=== PATIENT | female | born 1940 | race Caucasian/White ===

== ENCOUNTER 2019-12-06 09:28 | Inpatient (IN) | payer MEDICARE, OTHER ==
[~2019-12-06] VITALS: Ht 154.9 cm; Wt 62.2 kg
[2019-12-06 09:55] VITALS: BP 131/69
[2019-12-06] MEDS ORDERED: Pantoprazole 80 MG in NS 250 ML IV ONE (10:00)
--- NOTE | 2019-12-06 10:20 | NUR ---
ED Nurse Note: Pt BIBA for L-sided weakness and 3 recent falls. Pt also states she had had black stools today. She denies pain, nausea, vomtiing. Pt is alert and orientedx4, ambulatory. Pt has been seen by CHELY.
[2019-12-06 10:41] LABS: BASOPHILS % (AUTO) 0.9 % (0.0-2.0); EOSINOPHILS % (AUTO) 0.1 % (0.0-3.0); HEMATOCRIT 35.7 % (37.0-47.0); HEMOGLOBIN 12.7 G/DL (12.0-16.0); LYMPHOCYTES % (AUTO) 14.9 % (20.0-45.0); MEAN CORPUSCULAR VOLUME 91 FL (80-99); MONOCYTES % (AUTO) 6.9 % (1.0-10.0); NEUTROPHILS % (AUTO) 77.2 % (45.0-75.0); PLATELET COUNT 301 K/UL (150-450); RED BLOOD COUNT 3.93 M/UL (4.20-5.40); RED CELL DISTRIBUTION WIDTH 11.1 % (11.6-14.8); WHITE BLOOD COUNT 7.9 K/UL (4.8-10.8)
[2019-12-06 10:49] LABS: ANION GAP 8 mmol/L (5-15); BLOOD UREA NITROGEN 24 mg/dL (7-18); CALCIUM 9.3 MG/DL (8.5-10.1); CARBON DIOXIDE 28 MMOL/L (21-32); CHLORIDE 103 MMOL/L (98-107); CREATININE 1.2 MG/DL (0.55-1.30); POTASSIUM 3.6 MMOL/L (3.5-5.1); SODIUM 139 MMOL/L (136-145)
[2019-12-06 11:00] LABS: ALANINE AMINOTRANSFERASE 22 U/L (12-78); ALBUMIN 3.4 G/DL (3.4-5.0); ALBUMIN/GLOBULIN RATIO 1.1 (1.0-2.7); ALKALINE PHOSPHATASE 91 U/L (46-116); ASPARTATE AMINO TRANSFERASE 23 U/L (15-37); BILIRUBIN,TOTAL 0.3 MG/DL (0.2-1.0); CREATINE KINASE 166 U/L (26-308)
[2019-12-06] MEDS ORDERED: ATORVASTATIN CA20 MG ORAL (11:04)
[2019-12-06] MEDS ORDERED: FERROUS SULFAT325 MG ORAL (11:04)
[2019-12-06] MEDS ORDERED: CEPHALEXIN500 MG ORAL (11:04)
[2019-12-06] MEDS ORDERED: vitamin D PO (11:04)
[2019-12-06 11:05] VITALS: BP 128/72
[2019-12-06] MEDS ORDERED: cefTRIAXone 1 GM in NS 55 ML IVPB ONE (11:15)
[2019-12-06 11:17] LABS: APPEARANCE,URINE CLEAR; BILIRUBIN, URINE NEGATIVE (NEGATIVE); GLUCOSE, URINE (UA) NEGATIVE (NEGATIVE); KETONES,URINE NEGATIVE (NEGATIVE); LEUKOCYTE ESTERASE ,URINE NEGATIVE (NEGATIVE); NITRITE,URINE NEGATIVE (NEGATIVE); PH,URINE 5 (4.5-8.0); PROTEIN,URINE 1+ (NEGATIVE); UROBILINOGEN,URINE NORMAL MG/DL (0.0-1.0)
[2019-12-06 11:18] LABS: COLOR,URINE YELLOW
--- NOTE | 2019-12-06 11:29 | Diagnostic Imaging Report ---
Indication: Pain, trauma, status post fall Technique: Spiral acquisitions obtained through the cervical spine. No IV contrast utilized. Multiplanar reconstructions were generated. Total dose length product 465 mGycm. CTDIvol(s) 20 mGy. Dose reduction achieved using automated exposure control. Comparison: none Findings: The bony alignment is normal. No prevertebral soft tissue swelling. Vertebral body heights are preserved. The disc spaces are preserved. No acute fractures. No dislocations. There is degenerative narrowing of the anterior atlantoaxial joint. There is mild facet arthrosis on the right at C3-4. There is minimal bilateral neural foraminal narrowing. No significant disc bulge or protrusion or spinal stenosis. There is mild left and moderate right facet arthrosis at C4-5. There is moderate to severe right neural foraminal stenosis, minimal left neural foraminal stenosis. No significant disc bulge or protrusion or spinal stenosis. At C5-6, bilateral facet arthrosis results in mild bilateral neural foraminal stenosis. No significant disc bulge or protrusion or spinal stenosis. At C6-7, there is bilateral facet arthrosis. No significant disc bulge or protrusion, spinal stenosis, or neural foraminal stenosis. At C7-T1, there is bilateral facet arthrosis. No significant neural foraminal stenosis, disc bulge or protrusion, spinal stenosis. The included extra spinal soft tissues are unremarkable. Impression: No acute bony trauma Degenerative changes as described on a level by level basis above The CT scanner at [facility] is accredited by the [employer] and the scans are performed using protocols designed to limit radiation exposure to as low as reasonably achievable to attain images of sufficient resolution adequate for diagnostic evaluation.
--- NOTE | 2019-12-06 11:43 | Diagnostic Imaging Report ---
Indications: Pain, trauma, status post fall Technique: Spiral acquisitions obtained through the brain. Angled axial and coronal 5 x 5 mm slices were reconstructed. Total dose length product 1072 mGycm. CTDI vol(s) 53 mGy. Dose reduction achieved using automated exposure control Comparison: None. Findings: No acute intracranial hemorrhage is demonstrated. There is some low-attenuation in the high posterior parasagittal right frontal lobe consistent with edema. This appears to be mostly within the white matter but there does appear to be some cortical extension as well. There is some edema of the anterior inferior right parietal cortex and overall greater abundance of brain tissue in the right convexity region. There is suggestion of some white matter edema in the inferior right maddox radiata.. All of this results in midline shift, with leftward shift of the midline of about 6 mm. There is also effacement of the sulci on the right. The mont[place]-white differentiation elsewhere is preserved. There is calvarial hyperostosis. No acute fractures. The mastoids are clear. The visualized sinuses are clear. Impression: Evidence of multifocal areas of very subtle edema in the right convexity, as described. This results in mass effect with 6 5 mm of leftward midline shift and effacement of the ipsilateral sulci. Edema may be due to tumor, inflammation, or acute/subacute infarction. Given the absence of hemorrhage, this is less likely related to the recent trauma. Recommend contrast MRI for better characterization. No evidence of acute intracranial hemorrhage Critical value findings phoned to Dr. Hall in the emergency room at the time of interpretation The CT scanner at [facility] is accredited by the [employer] and the scans are performed using protocols designed to limit radiation exposure to as low as reasonably achievable to attain images of sufficient resolution adequate for diagnostic evaluation.
[2019-12-06] MEDS ORDERED: Gadavist 7.5mMol/7.5ml vial IV PRN (11:45)
--- NOTE | 2019-12-06 12:24 | Emergency Room Report ---
History of Present Illness General Chief Complaint: Generalized Weakness Source: Patient Present Illness HPI 79-year-old female here with generalized weakness, acute left-sided weakness, low energy, multiple falls. Patient says that she intermittently feels lightheaded but feels much weaker on the left side over the past several weeks. She went to a another hospital several days ago and was diagnosed with a urinary tract infection and was given Keflex which she has been taking but says that she still feels these same symptoms and has been worsening. She fell multiple times earlier today. Denies head trauma. No blood thinners. Says that she feels generally weak in her left upper and left lower extremity but is still able to use his extremities. No other focal neurologic deficits. No headaches, vision changes, fevers, chills, chest pain, palpitations, shortness of breath, back pain, abdominal pain, nausea, vomiting, diarrhea, dysuria. Allergies: Coded Allergies: No Known Allergies (Unverified , 12/06/19) COVID-19 Screening Contact w/high risk pt: No Experienced COVID-19 symptoms?: No COVID-19 Testing performed ELECTRONIC WARFARE LINGUIST: No Nursing Documentation-[facility] Past Medical History: No History, Except For Review of Systems All Other Systems: negative except mentioned in HPI Physical Exam Vital Signs Date Time Temp Pulse Resp B/P (MAP) Pulse Ox O2 Delivery O2 Flow Rate FiO2 12/06/19 09:38 98.6 84 18 134/66 (88) 96 Room Air 12/06/19 09:55 98 Sp02 EP Interpretation: reviewed, normal General Appearance: no apparent distress, alert, GCS 15, non-toxic Head: normocephalic, atraumatic Eyes: bilateral eye normal inspection, bilateral eye PERRL ENT: hearing grossly normal, normal pharynx, no angioedema, normal voice Neck: full range of motion, supple/symm/no masses Respiratory: chest non-tender, lungs clear, normal breath sounds, speaking full sentences Cardiovascular #1: regular rate, rhythm, no edema Cardiovascular #2: 2+ carotid (R), 2+ carotid (L), 2+ radial (R), 2+ radial (L), 2+ dorsalis pedis (R), 2+ dorsalis pedis (L) Gastrointestinal: normal bowel sounds, non tender, soft, non-distended, no guarding, no rebound Rectal: deferred Genitourinary: normal inspection, no CVA tenderness Musculoskeletal: back normal, normal range of motion, calf tenderness, gait/station normal, non-tender Neurologic: alert, motor strength/tone normal, oriented x3, sensory intact, responsive, speech normal Psychiatric: judgement/insight normal, memory normal, mood/affect normal, no suicidal/homicidal ideation Reflexes: 3+ bicep (R), 3+ bicep (L), 3+ tricep (R), 3+ tricep (L), 3+ knee (R), 3+ knee (L) Lymphatic: no adenopathy Medical Decision Making Diagnostic Impression: Primary Impression: Brain edema Additional Impressions: Unilateral weakness Syncope Fall Melena ER Course CT head; Impression: Evidence of multifocal areas of very subtle edema in the right convexity, as described. This results in mass effect with 6 5 mm of leftward midline shift and effacement of the ipsilateral sulci. Edema may be due to tumor, inflammation, or acute/subacute infarction. Given the absence of hemorrhage, this is less likely related to the recent trauma. Recommend contrast MRI for better characterization. CT c-spine: negative EKG: NSR, no ischemia, intervals WNL. No ectopy Rhythm strip: patient monitored for arrhythmias - no malignant dysrhythmias, runs of PVCs, nor pauses noted 79-year-old female here with several weeks of left-sided weakness and multiple falls over the past several days to weeks. Patient was hemodynamically stable and neurovascular intact in the emergency department. She did not have any noted unilateral weakness on examination but she was complaining of subjective weakness of her left upper and left lower extremity. CT head showed unilateral right-sided swelling with approximately 5 mm midline shift. Patient was given 10 mg of Decadron IV. I spoke with the radiologist regarding these findings and he recommended MRI brain with contrast. That was performed in the emergency department and results are currently pending at this time. Patient has remained neurovascular intact without any cranial nerve deficits throughout her stay in the emergency department. CBC and CMP were unremarkable. EKG normal. Troponin negative. Patient was admitted to telemetry. Total critical care time: Approximately 25 minutes Due to a high probability of clinically significant, life threatening deterioration, the patient required the highest level of preparedness to intervene emergently and I personally spent this critical care time directly and personally managing the patient. This critical care time included obtaining a history, examining the patient, pulse oximetry, ordering and reviewing studies, ordering treatments, evaluating response to treatment and updating management plan as needed, frequent reassessment and discussion with other providers as well as arranging for ultimate disposition. This critical to care time was performed to assess and manage the high probability of life-threatening deterioration that could result in multiorgan failure. This critical care time is separate from the separately billable procedures and treating other patients. Last Vital Signs Date Time Temp Pulse Resp B/P (MAP) Pulse Ox O2 Delivery O2 Flow Rate FiO2 12/06/19 09:55 98.6 82 17 131/69 98 Room Air 12/06/19 09:55 98 Referrals: Heriberto Ashraf MD (PCP) Raymundo Hall M.D. Dec 06, 2019 12:24
[2019-12-06 13:10] VITALS: BP 134/66
[2019-12-06] MEDS ORDERED: dexAMETHasone 10mg/ml Inj IV ONE (13:15)
--- NOTE | 2019-12-06 14:15 | NUR ---
ED Nurse Note: Report given to Abby RN.
--- NOTE | 2019-12-06 14:30 | NUR ---
ED Nurse Note: Pt transferred to floor with all belongings. No acute distress. Pt is alert and ox4.
--- NOTE | 2019-12-06 15:33 | Diagnostic Imaging Report ---
Indication: Reason For Exam: AMS Technique: sagittal T1 fast spin echo, axial T1 and T2 FLAIR PROPELLER, axial T2 FS PROPELLER, T2* GRE, axial diffusion weighted images, post contrast axial and coronal T1 FLAIR PROPELLER images. ADC and exponential ADC maps generated Comparison: CT brain performed 2 hours earlier Findings: In the high right parietal lobe, near the vertex, there is an intra-axial mass with peripheral enhancement and central nonenhancement 16 by. The mass measures 16 mm craniocaudad by 15 mm transverse by 19 mm this does not show any diffusion restriction.. There is surrounding edema. There is edema occupying much of the right anterior inferior parietal lobe. Towards the vertex, edema is primarily confined to the white matter. However, in the inferior periphery of the parietal lobe there is even more intense edema in involving the cortex. This also extends into the superomedial temporal lobe. Edema is seen also crossing the posterior corpus callosum, and there is some vasogenic white matter edema within the high medial parietal deep white matter. Edema also extends into the right cerebral peduncle, which is asymmetrically enlarged. No contrast enhancement is seen within the area of edema. There is questionably a central ovoid area of peripheral low T2 and central high T2 signal, with a similar versus appearance on the T1-weighted images, which corresponds to some asymmetric white matter attenuation material seen in the same area on recent CT scan. This could represent a nonenhancing mass. No susceptibility artifact and no diffusion restriction is seen within the area of edema. There is mass effect, with attenuation of the ipsilateral lateral ventricle, the its lateral sulci and approximately 6 mm of right to left midline shift. The basilar cisterns are preserved There are some foci of and T2 signal within the left parietal lobe. There is some periventricular deep white matter low-attenuation, consistent with chronic microvascular ischemic change. The posterior fossa structures are normal other than demonstrating age-related volume loss. There is evidence of prior bilateral cataract surgery. The sinuses are unremarkable. The mastoids are clear. There is calvarial hyperostosis Impression: Enhancing mass in the high right parietal lobe near the vertex with peripheral enhancement and central enhancement and surrounding edema. Tumor versus abscess, favor tumor. Unusual pattern of enhancement in the right parietal lobe, superomedial temporal lobe, and basal ganglia region, also extending into the posterior right frontal lobe, across the posterior corpus callosum and into the left parietal deep white matter. Given the above finding, favor that this represents edema secondary to nonenhancing tumor, and it appears there may be a mass lesion in the center of this, particularly given the extension of edema into the contralateral side. However, the presence of intense cortical edema would be highly unusual for this differential consideration. Therefore, other processes such as inflammation/infection should also be considered. The pattern of edema is also characteristic of an infarct, but the absence of any diffusion abnormality essentially rules this out. Mass effect related to the above, with 6 mm of midline shift Other chronic and age-related changes, as described Findings discussed by phone with Dr. Valencia at the time of interpretation
--- NOTE | 2019-12-06 15:35 | NUR ---
NURSE NOTES: Received patient from ER, report given by Nila COLON. Transferred to bed. Belongings accounted for. Skin intact. Bruising noted on left back. No complaints of pain or discomfort. A and O x 4, with a pleasant disposition. Able to transfer to commode with assist. IV line on left AC g20 intact and patent. Awaiting orders for DVT prophylaxis, Kristi Tom NP contacted, left message and awaiting orders. Radiology unable to do carotid scan today, RN asking Kristi Tom NP if procedure can be done tomorrow, left message and awaiting response. Radiology said if procedure needs to be done today, a certified veterinary technician from the registry is needed. Kristi Tom informed, left message and awaiting response. Bed locked in low position, alarm on. Call light within reach. Will continue plan of care. Addendum: 12/06/19 at 184 by Abby Fischer RN NURSE NOTES: Orders for DVT ppx noted and carried out. Ok with Kristi Tom NP to do carotid scan tomorrow, Alberto of CT scan aware. pupil personnel worker Rosina Rose wishes to speak with Kristi Tom NP, number relayed to Kristi Tom NP. Addendum: 12/06/19 at 1843 by Abby Fischer RN NURSE NOTES: clinical research monitor placed upon admission.
--- NOTE | 2019-12-06 15:47 | Consultation ---
History of Present Illness General Date patient seen: Dec 06, 2019 Time patient seen: 14:55 Chief Complaint: Generalized Weakness Referring physician: Dr Ashraf Reason for Consultation: critical care Present Illness HPI 79 years old female with PMH of GB removal, anemia, cataracts, overall in good health prior , presented from home with generalized weakness , acute left side weakness ,low energy and multiply falls. Patient 's sister stated that for the last week patient was fatigued , sleepy, and sustained few falls as a result that she could not stand on her feet. She went to another hospital , was diagnosed with urinary tract tract infection, received Keflex and was discharged. However she stated that her symptoms were getting worse. Daughter also reported black-colored stool for the last 6 months. Patient denied head trauma. She was not taking any blood thinners. She denied headache or vision change. No fever or chills. No chest pain m shortness of breath or palpitations. No back pain. No abdominal pain , no nausea , vomiting or diarrhea. Upon evaluation vital signs were stable. Laboratory work-up revealed no leukocytosis, stable hemoglobin and hematocrit. Stable electrolytes. BUN 24, creatinine 1.2. Glucose 128. Troponin negative, proBNP 198. EKG revealed sinus rhythm . Stable LFT. Urinalysis revealed +1 protein, no evidence of urinary tract infection. Urine toxicology screen was negative. CT of the C-spine revealed no acute bony trauma. Degenerative changes noted. CT scan of the head revealed no evidence of acute intracranial hemorrhage. Evid ence of multifocal areas of very subtle edema in the right convexity resulting in mass-effect leftward midline shift , possibly due to more inflammation or acute/ subacute infarct. In emergency department patient received Protonix drip . MRI of the brain just completed, results are still pending. Patient is being transferred to telemetry floor for further management. Allergies: Coded Allergies: No Known Allergies (Unverified , 12/06/19) Medication History Scheduled Atorvastatin Calcium* (Atorvastatin Calcium*), 10 MG ORAL BEDTIME, (Reported) Cephalexin* (Keflex*), 500 MG ORAL EVERY 12 HOURS, (Reported) Ferrous Sulfate* (Ferrous Sulfate*), 325 MG ORAL DAILY, (Reported) [vitamin D ], 1,000 PO DAILY, (Reported) Patient History Healthcare decision maker Resuscitation status Full code Advanced Directive on File Review of Systems Constitutional: Reports: weakness - fatigue Eye: Reports: no symptoms ENT: Reports: no symptoms Respiratory: Reports: no symptoms Cardiovascular: Reports: no symptoms Gastrointestinal: Reports: melena Genitourinary: Reports: no symptoms Musculoskeletal: Reports: other - leg weakness Psychiatric: Reports: no symptoms Neurological: Reports: syncope Endocrine: Reports: no symptoms Hematologic/Lymphatic: Reports: no symptoms Physical Exam General Appearance: no apparent distress - awake, alert, [place] speaking predominantly female in NAD , alert Lines, tubes and drains: peripheral HEENT: normocephalic, atraumatic, anicteric, mucous membranes moist, PERRL Neck: supple Respiratory/Chest: lungs clear, normal breath sounds, no respiratory distress, no accessory muscle use Cardiovascular/Chest: normal rate, regular rhythm Abdomen: normal bowel sounds, non tender, soft Skin Exam: warm/dry, other - large bruise posterio-lateral left side back Neurologic: abnormal gait, alert, oriented x 3, responsive, other - LLE and LUE weakness 4/5 Musculoskeletal: normal muscle bulk Last 24 Hour Vital Signs Date Time Temp Pulse Resp B/P (MAP) Pulse Ox O2 Delivery O2 Flow Rate FiO2 12/06/19 09:55 98.6 82 17 131/69 98 Room Air 12/06/19 09:55 82 17 Room Air 98 12/06/19 09:38 98.6 84 18 134/66 (88) 96 Room Air Laboratory Tests Test 12/06/19 10:08 12/06/19 10:55 White Blood Count 7.9 K/UL (4.8-10.8) Red Blood Count 3.93 M/UL (4.20-5.40) L Hemoglobin 12.7 G/DL (12.0-16.0) Hematocrit 35.7 % (37.0-47.0) L Mean Corpuscular Volume 91 FL (80-99) Mean Corpuscular Hemoglobin 32.3 PG (27.0-31.0) H Mean Corpuscular Hemoglobin Concent 35.5 G/DL (32.0-36.0) Red Cell Distribution Width 11.1 % (11.6-14.8) L Platelet Count 301 K/UL (150-450) Mean Platelet Volume 5.9 FL (6.5-10.1) L Neutrophils (%) (Auto) 77.2 % (45.0-75.0) H Lymphocytes (%) (Auto) 14.9 % (20.0-45.0) L Monocytes (%) (Auto) 6.9 % (1.0-10.0) Eosinophils (%) (Auto) 0.1 % (0.0-3.0) Basophils (%) (Auto) 0.9 % (0.0-2.0) Prothrombin Time 10.7 SEC (9.30-11.50) Prothromb Time International Ratio 1.0 (0.9-1.1) Activated Partial Thromboplast Time 26 SEC (23-33) Sodium Level 139 MMOL/L (136-145) Potassium Level 3.6 MMOL/L (3.5-5.1) Chloride Level 103 MMOL/L (98-107) Carbon Dioxide Level 28 MMOL/L (21-32) Anion Gap 8 mmol/L (5-15) Blood Urea Nitrogen 24 mg/dL (7-18) H Creatinine 1.2 MG/DL (0.55-1.30) Estimat Glomerular Filtration Rate 43.3 mL/min (>60) Glucose Level 128 MG/DL (74-106) H Calcium Level 9.3 MG/DL (8.5-10.1) Total Bilirubin 0.3 MG/DL (0.2-1.0) Aspartate Amino Transf (AST/SGOT) 23 U/L (15-37) Alanine Aminotransferase (ALT/SGPT) 22 U/L (12-78) Alkaline Phosphatase 91 U/L (46-116) Total Creatine Kinase 166 U/L (26-308) Troponin I 0.000 ng/mL (0.000-0.056) Pro-B-Type Natriuretic Peptide 198 pg/mL (0-125) H Total Protein 6.6 G/DL (6.4-8.2) Albumin 3.4 G/DL (3.4-5.0) Globulin 3.2 g/dL Albumin/Globulin Ratio 1.1 (1.0-2.7) Urine Color Yellow Urine Appearance Clear Urine pH 5 (4.5-8.0) Urine Specific [place] 1.015 (1.005-1.035) Urine Protein 1+ (NEGATIVE) H Urine Glucose (UA) Negative (NEGATIVE) Urine Ketones Negative (NEGATIVE) Urine Blood 1+ (NEGATIVE) H Urine Nitrite Negative (NEGATIVE) Urine Bilirubin Negative (NEGATIVE) Urine Urobilinogen Normal MG/DL (0.0-1.0) Urine Leukocyte Esterase Negative (NEGATIVE) Urine RBC 0-2 /HPF (0 - 2) Urine WBC 0 /HPF (0 - 2) Urine Squamous Epithelial Cells Occasional /LPF Urine Bacteria Occasional /HPF (NONE) Urine Opiates Screen Negative (NEGATIVE) Urine Barbiturates Screen Negative (NEGATIVE) Phencyclidine (PCP) Screen Negative (NEGATIVE) Urine Amphetamines Screen Negative (NEGATIVE) Urine Benzodiazepines Screen Negative (NEGATIVE) Urine Cocaine Screen Negative (NEGATIVE) Urine Marijuana (THC) Screen Negative (NEGATIVE) Height (Feet): 5 Height (Inches): 1.00 Weight (Pounds): 150 Medications Current Medications Medications (Trade) Dose Ordered Sig/Dani Route PRN Reason Start Time Stop Time Status Last Admin Dose Admin Dextrose (Dextrose 50%) 25 ml Q30M PRN IV Hypoglycemia 12/06/19 12:30 03/05/20 12:29 Dextrose (Dextrose 50%) 50 ml Q30M PRN IV Hypoglycemia 12/06/19 12:30 03/05/20 12:29 Dextrose/ Electrolytes 1,000 ml @ 75 mls/hr [id number] IV 12/06/19 14:00 01/05/20 13:59 Gadobutrol (Gadavist) 7.5 mmol NOW PRN IV Radiology Procedure 12/06/19 11:45 12/10/19 11:44 Pantoprazole (Protonix) 40 mg BID IVP 12/06/19 18:00 01/05/20 17:59 Pantoprazole 80 mg/Sodium Chloride 250 ml @ 25 mls/hr Q10H ONCE IV 12/06/19 10:00 12/06/19 19:59 12/06/19 10:30 Assessment/Plan Assessment/Plan: ASSESSMENT acute left side weakness brain edema possible acute/subacute infarct r/o brain tumor syncope/ presyncope episodes GI bleeding/melena recurrent falls recent UTI PLAN OF CARE tele MRI brain ECHO with pEF 60% no WMA troponin NGT, ECG no acute ischemic changes, repeat another troponin in am Carotid Duplex orthostatic VS gentle IV hydration monitor volumes GI prophylaxis bid consider GI eval - per primary team stool OB, CEA, anemia w/up monitor HH, stable for now, anemia w/up fall precautions PT eval and Rx empiric ceftriaxone for recent UTI ( not completed treatment), fup with UCX, although may not show any growth, since was already partially treated labs check TSH, HgA1c, supportive care case discussed and evaluated by supervising physician Kristi Tom NP Dec 06, 2019 15:47
[2019-12-06] MEDS: Pantoprazole Inj IVP SCH (17:24)
[2019-12-06] MEDS: D5 1/2NS w/KCL 10meq 1,000 ML IV SCH (17:24)
[2019-12-06 18:48] VITALS: BP 127/78
--- NOTE | 2019-12-06 19:07 | Diagnostic Imaging Report ---
Indication: Cough Technique: One view of the chest Comparison: none Findings: Lungs and pleural spaces are clear. Heart size is normal. There is some atelectasis at the right lung base Impression: No acute process
--- NOTE | 2019-12-06 19:40 | NUR ---
NURSE HAND-OFF REPORT: Important Events on Shift:admission Patient Status: alert, pleasant Diet: soft Pending Orders: carotic scan 12/06/2019 Pending Results/Labs: Pending MD notification: Latest Vital Signs: Temperature 97.9 , Pulse 76 , B/P 127 /78 , Respiratory Rate 18 , O2 SAT 98 , Room Air, O2 Flow Rate . Vital Sign Comment: EKG Rhythm: Sinus Rhythm Rhythm change?: N MD Notified?: - MD Response: Latest Ellis Fall Score: 55 Fall Risk: High Risk Safety Measures: Call light Within Reach, Bed Alarm Zone 1, Side Rails Side Rails x2, Bed position . Fall Precautions: Report given to Phill RN / Clark RN.
[2019-12-06 20:00] VITALS: BP_SYST 120; BP_SYST 122; BP_SYST 126; BP_DIAS 56; BP_DIAS 62; BP_DIAS 82
--- NOTE | 2019-12-06 20:07 | History & Physical ---
History and Physical History & Physicial Dictated int Med-no. [id number] Heriberto Ashraf MD Dec 06, 2019 20:07
--- NOTE | 2019-12-06 20:18 | NUR ---
NURSE NOTES: Received report from Abby Quispe RN.The patient is alert and oriented x4 Vietnamese speaker with limited Nicaraguan.She is cooperative with her care and does not apper to be in any distress at this time.The Resp is even and unlabored and she is on room air and has bedside commode which she was instructed to use the call light for help at all time.She was noted with Left sided deficit. She has an IV line in the left AC 20g that is patent and asymptomatic.The bed in low and locked level and sidrails up x3, call light within easy reach. Will continue to monitor as indicated
--- NOTE | 2019-12-06 20:45 | History and Physical Report ---
DATE OF ADMISSION: 12/06/2019 CHIEF COMPLAINT: The patient is an 79-year-old female, who presents with a chief complaint of left-sided weakness and multiple falls. 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 According to her caregiver, the patient has become increasingly weak over the last four days. The patient herself is unable to rise from the toilet. The patient states she has been falling frequently. The patient feels weaker on the left than on the right. The patient states she has had some vertigo. The patient presented to [place] emergency room. The patient is admitted with near-syncopal episode. REVIEW OF SYSTEMS: CONSTITUTIONAL: The patient denies weight loss or weight gain. The patient denies fevers or chills. HEENT: The patient denies ear or throat pain. The patient denies headache. CARDIOVASCULAR: The patient denies palpitations or chest pain. CHEST: The patient denies wheeze or shortness of breath. ABDOMEN: The patient denies nausea, vomiting, diarrhea, or constipation. GENITOURINARY: The patient denies dysuria or increased frequency of urination. NEUROMUSCULAR: The patient denies seizures. The patient complains of left-sided weakness as above. The patient complains of multiple falls as above. The patient complains of vertigo as above. PAST MEDICAL HISTORY: Significant for: 1. Hypercholesterolemia. 2. Iron deficiency anemia. 3. Vitamin D deficiency. PAST SURGICAL HISTORY: Significant for: 1. Cholecystectomy. 2. Cataract surgery in 1989. 3. Repeat cataract surgery in 2012. CURRENT MEDICATIONS: 1. Atorvastatin 10 mg one tablet p.o. nightly. 2. Iron sulfate 325 mg p.o. daily. 3. Vitamin D 1000 units p.o. daily. ALLERGIES: No known drug allergies. 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 The patient denies tobacco or alcohol use. PHYSICAL EXAMINATION: VITAL SIGNS: Temperature 98.6, respirations 18, pulse 84, blood pressure 134/66. GENERAL: The patient is a well-developed and well-nourished female, in no apparent distress. HEENT: Eyes, pupils are equal and responsive to light and accommodation. Extraocular movements are intact. NECK: Supple without lymphadenopathy. CHEST: Lungs are clear to auscultation bilaterally without wheezes or rales. CARDIOVASCULAR: Regular rate, S1, S2 normal without murmurs, rubs, or gallops. ABDOMEN: Soft, nontender, and nondistended. Positive bowel sounds. No evidence of hepatosplenomegaly. Currently, no rebound or guarding noted. EXTREMITIES: Negative for clubbing, cyanosis, or edema. RECTAL/GENITAL: Not performed. NEUROLOGICAL: Motor strength is 3/5 on the left upper and lower extremity, otherwise 5/5 throughout. Deep tendon reflexes are 2+ plantar . LABORATORY STUDIES: WBC 7.9, hemoglobin 12.7, hematocrit 35.7, platelets 301,000. Sodium 139, potassium 3.6, chloride 103, CO2 20, BUN 24, creatinine 1.2. Glucose 128. CT scan of the brain was reported as multifocal areas of edema in the right parietal lobe. There is a mass effect with 6.5 mm left midline shift. An MRI of the brain is pending. ASSESSMENT: This is an 79-year-old female with: 1. Left-sided weakness, left hemiparesis. 2. Frequent falls. 3. Iron deficiency anemia. 4. Hypercholesterolemia. 5. Vitamin D deficiency. TREATMENT: 1. Left-sided weakness/vertigo/multiple falls. An MRI of the brain is pending. Edema of the right parietal lobe is concerning for mass. An MRI of the brain is pending. 2. Hypercholesterolemia. Continue atorvastatin as above. 3. Iron deficiency anemia. The patient is currently not anemic. 4. Vitamin D deficiency. Heriberto sAhraf M.D. DR: HITESH JOB#: [id number] CC: JENNI
--- NOTE | 2019-12-06 22:05 | NUR ---
NURSE NOTES: Orthostatic Vitals done - charted in EMR accordingly. Pt did not complained of dizziness or headache during assessment.
[2019-12-07] VITALS: BP 125/58
--- NOTE | 2019-12-07 00:41 | NUR ---
NURSE NOTES: Pt had one BM, OB stool collected as ordered.
--- NOTE | 2019-12-07 01:15 | Consultation ---
DATE OF CONSULTATION: 12/06/2019 CARDIOLOGY CONSULTATION CONSULTING PHYSICIAN: Kwaku Mcguire MD. REQUESTING PHYSICIAN: Heriberto Ashraf MD. REASON FOR CONSULTATION: Near syncope. HISTORY OF PRESENT ILLNESS: This 79-year-old female with no known history of cardiovascular disease, has been increasingly weak over the past days. She has not been able to stand up due to dizziness and ataxia. She has been falling frequently and has felt to be weaker on the left side. She felt the room spinning according to her caregiver. She denied chest pain or shortness of breath. The patient was seen in the emergency room. An abnormal imaging study was noted of the brain. I have been asked to address possible cardiovascular contribution to her presentation. PAST MEDICAL HISTORY: Hyperlipidemia, anemia with iron deficiency, osteoarthritis, osteoporosis, degenerative disk disease, vitamin D deficiency, prior cholecystectomy, history of cataract surgery x2. ALLERGIES: None. MEDICATIONS: Reviewed and reconciled. SOCIAL HISTORY: She lives in a [facility]. There is no history of smoking, alcohol or substance abuse. REVIEW OF SYSTEMS: A ten-point review of systems performed. No fevers or chills. No known COVID-19 exposure. No head trauma. No palpitations or chest pain. No history of myocardial infarction, endocarditis or rheumatic heart disease. She has had outpatient echocardiograms in 2019 that revealed normal ejection fraction and mild degenerative valve disease. There is no history of seizure or stroke. No change in bowel habits. No dysuria or frequency. No history of asthma or abnormal blood clotting. There is no history of diabetes or known thyroid impairment. She is on anti-lipid therapy. PHYSICAL EXAMINATION: VITAL SIGNS: Blood pressure 134/66, pulse 84, respirations 18, and afebrile. NECK: Supple. LUNGS: Clear. CARDIAC: Regular. There is a normal S1 and S2 with a fourth heart sound. No murmur. ABDOMEN: Soft, nontender. EXTREMITIES: Without edema, clubbing or cyanosis. NEUROLOGIC: Gait is not assessed. Motor strength is slightly to be reduced on the left side. LABORATORY AND DIAGNOSTIC DATA: CBC reveals white count 7.9, hemoglobin 12.7. BUN is 24, creatinine 1.2, glucose 128, sodium 139, potassium 3.6, and bicarb 20. MRI of the brain reveals right parietal mass with midline shift due to edema. IMPRESSION: 1. Brain tumor versus mass with edema and midline shift and likely contributing to weakness on the left side and gait disturbance resulting in frequent falls. 2. No signs of acute cardiovascular process. 3. EKG reveals sinus rhythm with no acute abnormalities. RECOMMENDATIONS: Bedrest. Fall precautions. Cardiac monitoring. Consider IV Decadron. Avoid anticoagulation or anti-platelet therapy at this time. Maintain adequate hydration. Kwaku Mcguire M.D. DR: CONCEPCION JOB#: [id number] CC:
[2019-12-07] MEDS: D5 1/2NS w/KCL 10meq 1,000 ML IV SCH ×2 (03:20→18:06)
[2019-12-07 04:00] VITALS: BP 130/62
--- NOTE | 2019-12-07 06:00 | NUR ---
NURSE NOTES: The patient was able to sleep all night long and does not appear to be in any distress at this time, she also did no complain or exhibit any sign or symptoms of pain. Resp remained even and unlabored and she was cooperative with her care. Will continue to monitor
--- NOTE | 2019-12-07 06:34 | Consultation ---
History of Present Illness General Chief Complaint: Generalized Weakness Referring physician: Dr Ashraf Reason for Consultation: critical care Present Illness Allergies: Coded Allergies: No Known Allergies (Unverified , 12/06/19) Medication History Scheduled Atorvastatin Calcium* (Atorvastatin Calcium*), 10 MG ORAL BEDTIME, (Reported) Cephalexin* (Keflex*), 500 MG ORAL EVERY 12 HOURS, (Reported) Ferrous Sulfate* (Ferrous Sulfate*), 325 MG ORAL DAILY, (Reported) [vitamin D ], 1,000 PO DAILY, (Reported) Patient History Healthcare decision maker Resuscitation status Advanced Directive on File Physical Exam Last 24 Hour Vital Signs Date Time Temp Pulse Resp B/P (MAP) Pulse Ox O2 Delivery O2 Flow Rate FiO2 12/07/19 04:00 97.5 84 17 130/62 (84) 98 12/07/19 04:00 57 12/07/19 00:00 97.8 82 17 125/58 (80) 97 12/07/19 00:00 71 12/06/19 21:00 Room Air 12/06/19 20:00 79 80 87 12/06/19 20:00 97.9 79 18 120/82 (95) 96 126/56 (79) 122/62 (82) 12/06/19 20:00 82 12/06/19 18:48 97.9 76 18 127/78 98 Room Air 98 12/06/19 16:30 Room Air 12/06/19 16:00 75 12/06/19 14:30 97.9 76 18 127/78 98 Room Air 12/06/19 13:10 98.6 79 19 134/66 99 Room Air 12/06/19 11:05 98.6 76 15 128/72 100 Room Air 12/06/19 09:55 98.6 82 17 131/69 98 Room Air 12/06/19 09:55 82 17 Room Air 98 12/06/19 09:38 98.6 84 18 134/66 (88) 96 Room Air Intake and Output 12/06/19 12/07/19 19:00 07:00 Intake Total 120 ml Output Total 300 ml Balance -180 ml Intake Oral 120 ml Output Urine Total 300 ml # Voids 5 # Bowel Movements 1 Laboratory Tests Test 12/06/19 10:08 12/06/19 10:55 12/07/19 01:00 White Blood Count 7.9 K/UL (4.8-10.8) Red Blood Count 3.93 M/UL (4.20-5.40) L Hemoglobin 12.7 G/DL (12.0-16.0) Hematocrit 35.7 % (37.0-47.0) L Mean Corpuscular Volume 91 FL (80-99) Mean Corpuscular Hemoglobin 32.3 PG (27.0-31.0) H Mean Corpuscular Hemoglobin Concent 35.5 G/DL (32.0-36.0) Red Cell Distribution Width 11.1 % (11.6-14.8) L Platelet Count 301 K/UL (150-450) Mean Platelet Volume 5.9 FL (6.5-10.1) L Neutrophils (%) (Auto) 77.2 % (45.0-75.0) H Lymphocytes (%) (Auto) 14.9 % (20.0-45.0) L Monocytes (%) (Auto) 6.9 % (1.0-10.0) Eosinophils (%) (Auto) 0.1 % (0.0-3.0) Basophils (%) (Auto) 0.9 % (0.0-2.0) Prothrombin Time 10.7 SEC (9.30-11.50) Prothromb Time International Ratio 1.0 (0.9-1.1) Activated Partial Thromboplast Time 26 SEC (23-33) Sodium Level 139 MMOL/L (136-145) Potassium Level 3.6 MMOL/L (3.5-5.1) Chloride Level 103 MMOL/L (98-107) Carbon Dioxide Level 28 MMOL/L (21-32) Anion Gap 8 mmol/L (5-15) Blood Urea Nitrogen 24 mg/dL (7-18) H Creatinine 1.2 MG/DL (0.55-1.30) Estimat Glomerular Filtration Rate 43.3 mL/min (>60) Glucose Level 128 MG/DL (74-106) H Calcium Level 9.3 MG/DL (8.5-10.1) Total Bilirubin 0.3 MG/DL (0.2-1.0) Aspartate Amino Transf (AST/SGOT) 23 U/L (15-37) Alanine Aminotransferase (ALT/SGPT) 22 U/L (12-78) Alkaline Phosphatase 91 U/L (46-116) Total Creatine Kinase 166 U/L (26-308) Troponin I 0.000 ng/mL (0.000-0.056) Pro-B-Type Natriuretic Peptide 198 pg/mL (0-125) H Total Protein 6.6 G/DL (6.4-8.2) Albumin 3.4 G/DL (3.4-5.0) Globulin 3.2 g/dL Albumin/Globulin Ratio 1.1 (1.0-2.7) Urine Color Yellow Urine Appearance Clear Urine pH 5 (4.5-8.0) Urine Specific [place] 1.015 (1.005-1.035) Urine Protein 1+ (NEGATIVE) H Urine Glucose (UA) Negative (NEGATIVE) Urine Ketones Negative (NEGATIVE) Urine Blood 1+ (NEGATIVE) H Urine Nitrite Negative (NEGATIVE) Urine Bilirubin Negative (NEGATIVE) Urine Urobilinogen Normal MG/DL (0.0-1.0) Urine Leukocyte Esterase Negative (NEGATIVE) Urine RBC 0-2 /HPF (0 - 2) Urine WBC 0 /HPF (0 - 2) Urine Squamous Epithelial Cells Occasional /LPF Urine Bacteria Occasional /HPF (NONE) Urine Opiates Screen Negative (NEGATIVE) Urine Barbiturates Screen Negative (NEGATIVE) Phencyclidine (PCP) Screen Negative (NEGATIVE) Urine Amphetamines Screen Negative (NEGATIVE) Urine Benzodiazepines Screen Negative (NEGATIVE) Urine Cocaine Screen Negative (NEGATIVE) Urine Marijuana (THC) Screen Negative (NEGATIVE) Stool Occult Blood Pending Height (Feet): 5 Height (Inches): 1.00 Weight (Pounds): 150 Medications Current Medications Medications (Trade) Dose Ordered Sig/Dani Route PRN Reason Start Time Stop Time Status Last Admin Dose Admin Ceftriaxone Sodium 1 gm/ Dextrose 55 ml @ 110 mls/hr Q24H IVPB 12/07/19 12:00 12/14/19 11:59 Dextrose (Dextrose 50%) 25 ml Q30M PRN IV Hypoglycemia 12/06/19 12:30 03/05/20 12:29 Dextrose (Dextrose 50%) 50 ml Q30M PRN IV Hypoglycemia 12/06/19 12:30 03/05/20 12:29 Dextrose/ Electrolytes 1,000 ml @ 75 mls/hr [id number] IV 12/06/19 14:00 01/05/20 13:59 12/06/19 17:24 Gadobutrol (Gadavist) 7.5 mmol NOW PRN IV Radiology Procedure 12/06/19 11:45 12/10/19 11:44 Heparin Sodium (Porcine) (Heparin 5000 units/ml) 5,000 units Q12HR SUBQ 12/07/19 09:00 01/21/20 08:59 Pantoprazole (Protonix) 40 mg BID IVP 12/06/19 18:00 01/05/20 17:59 12/06/19 17:24 Assessment/Plan Assessment/Plan: Hematology Consultation RESenthil MD: Erik Quigley RFC: Eval of brain tumor/mass DOS: 12/07/19 Called by [facility] 79-year-old female here with generalized weakness, acute left-sided weakness, l ow energy, multiple falls. Patient says that she intermittently feels lightheaded but feels much weaker on the left side over the past several weeks. She went to a another hospital several days ago and was diagnosed with a urinary tract infection and was given Keflex which she has been taking but says that she still feels these same symptoms and has been worsening. She fell multiple times earlier today. Denies head trauma. No blood thinners. Says that she feels generally weak in her left upper and left lower extremity but is still able to use his extremities. No other focal neurologic deficits. No headaches, vision changes, fevers, chills, chest pain, palpitations, shortness of breath, back pain, abdominal pain, nausea, vomiting, diarrhea, dysuria. Mri and ct of brain shows brain tumor and heme consulted to eval. All No Known Allergies (Unverified , 12/06/19) COVID-19 Screening Contact w/high risk pt: No Experienced COVID-19 symptoms?: No COVID-19 Testing performed INDUSTRIAL FURNACE FABRICATOR: No Nursing Documentation-PMH Past Medical History: No History, Except For Review of Systems All Other Systems: negative except mentioned in HPI Physical Exam Vital Signs: reviewed General Appearance: GCS 15, non-toxic Heent: hearing grossly normal, normal pharynx, no angioedema, normal voice Neck: full range of motion, supple/symm/no masses Respiratory: chest non-tender, lungs clear, normal breath sounds, speaking full sentences Cardiovascular: regular rate, rhythm, no edema Gastrointestinal: normal bowel sounds, non tender, soft Rectal: deferred Neurologic: alert, motor strength/tone normal Lymphatic: no adenopathy Labs: noted Imaging: reviewed Assessment and recs # Brain mass with midline shift - Enhancing mass in the high right parietal lobe near the vertex with peripheral enhancement and central enhancement and surrounding edema. Tumor versus abscess, favor tumor. Unusual pattern of enhancement in the right parietal lobe, superomedial temporal lobe, and basal ganglia region, also extending into the posterior right frontal lobe, across the posterior corpus callosum and into the left parietal deep white matter. --> she is taiwanese speaking and does recound has a history of skin cancer, may be melanoma v other malignancy --> obtain ct c/a/p --> consider neurosurgery eal, may need transfer to high level of care --> tumor markers ordered # Anemia due to iron deficiency --> continue on po iron --> hgb currently stable # Brain edema --> steriods as per neuro eval --> may need resection/biopsy # Unilateral weakness --> likely due to above # Syncope # Fall # Melena Appreciate consultation and dw Seamus Maurice MD Dec 07, 2019 06:34
[2019-12-07] MEDS ORDERED: Omnipaque-300 100ml vial INJ PRN (06:45)
[2019-12-07] MEDS: Omnipaque-300 100ml vial INJ SCH (06:45)
--- NOTE | 2019-12-07 07:25 | NUR ---
NURSE HAND-OFF REPORT: Important Events on Shift: OB stool collected. Ortho VS done. Patient Status: Stable Diet: Soft Diet Pending Orders: CT chest c contrast, CT abd/pelvis, Carotid Vertebral Duplex Scan Pending Results/Labs: n/a Pending MD notification: n/a Latest Vital Signs: Temperature 97.5 , Pulse 57 , B/P 130 /62 , Respiratory Rate 17 , O2 SAT 98 , Room Air, O2 Flow Rate . Vital Sign Comment: WNL EKG Rhythm: Sinus Bradycardia Rhythm change?: N MD Notified?: - MD Response: Latest Ellis Fall Score: 55 Fall Risk: High Risk Safety Measures: Call light Within Reach, Bed Alarm Zone 2, Side Rails Side Rails x2, Bed position Low and Locked. Fall Precautions: Yellow Socks Yellow Gown Door Sign Patient Fall Education Report given to ISAIAH Hastings.
--- NOTE | 2019-12-07 07:30 | NUR ---
NURSE NOTES: RECEIVED PATIENT FROM JESUS, DENIES ANY PAIN AT THIS TIME. NOTED PATIENT HAS BRUISE ON LEFT MIDDLE BACK, DENIES ANY PAIN UPON ASSESSMENT, OTHERWISE SKIN IS INTACT. PATIENT IS AAO X4IV ON LAC IS INTACT AND PATENT RUNNING D5 1/2 NS W/10 MEQ KCL @75MLS/HR. BED IS IN LOWEST POSITION WITH BEDSIDE RAILS UP X3, BRAKES ENGAGED FOR SAFETY. WILL CONTINUE WITH THE PLAN OF CARE.
[2019-12-07 07:36] LABS: HEMATOCRIT 32.5 % (37.0-47.0); HEMOGLOBIN 11.4 G/DL (12.0-16.0); MEAN CORPUSCULAR VOLUME 91 FL (80-99); PLATELET COUNT 262 K/UL (150-450); RED BLOOD COUNT 3.56 M/UL (4.20-5.40); RED CELL DISTRIBUTION WIDTH 11.5 % (11.6-14.8); WHITE BLOOD COUNT 11.8 K/UL (4.8-10.8)
[2019-12-07 07:55] LABS: ANION GAP 9 mmol/L (5-15); BLOOD UREA NITROGEN 17 mg/dL (7-18); CALCIUM 8.7 MG/DL (8.5-10.1); CARBON DIOXIDE 25 MMOL/L (21-32); CHLORIDE 107 MMOL/L (98-107); CREATININE 1.1 MG/DL (0.55-1.30); FERRITIN 242 NG/ML (8-388); POTASSIUM 3.5 MMOL/L (3.5-5.1); SODIUM 141 MMOL/L (136-145)
[2019-12-07 08:00] VITALS: BP 123/53
[2019-12-07 08:01] LABS: % IRON SATURATION 32 % (15-50); IRON 79 ug/dL (50-175); TOTAL IRON BINDING CAPACITY 245 ug/dL (250-450)
[2019-12-07] MEDS ORDERED: Heparin 5000 units/ml inj SUBQ SCH (09:00)
[2019-12-07] MEDS: Pantoprazole Inj IVP SCH ×2 (09:08→18:06)
--- NOTE | 2019-12-07 10:25 | NUR ---
PT EVALUATION NOTE Patient seen for initial evaluation and treatment initiated. Patient presents with generalized weakness and impaired balance in sitting and standing. Patient requires min/mod assist for bed mobility. Patient requires min assist to stand with a FWW. Patient leans posteriorly and to the left in sitting and standing, requires verbal and tactile cues to correct. Patient able to take a few small sideways steps however unable to ambulate at this time. Patient will benefit from skilled inpatient PT intervention to increase strength and postural stability for improved level of functional mobility and safety with transfers and ambulation. Patient may benefit from use of FWW for ambulation. Addendum: 12/07/19 at 1251 by MARSHALL COLEMAN PT Amended: Links added.
[2019-12-07] MEDS: cefTRIAXone 1 GM in D5W 55 ML IVPB SCH (11:44)
[2019-12-07 12:00] VITALS: BP 114/50
--- NOTE | 2019-12-07 12:05 | Diagnostic Imaging Report ---
Indication: Syncope Technique: Grayscale and duplex images of the extracranial carotid arteries and vertebral arteries Comparison: none Findings: Grayscale and duplex images demonstrate atherosclerotic plaquing resulting in less than 50% diameter narrowing. Normal Doppler flow velocities and waveforms. Patent bilateral vertebral arteries, antegrade flow Impression: Less than 50% diameter stenosis bilaterally All stenosis was measured based on the NASCET criteria. Velocity criteria are extrapolated from diameter data as defined by the Society of radiologists in ultrasound consensus conference. Radiology 2003:229; 340-346
--- NOTE | 2019-12-07 12:41 | Pulmonology Progress Note ---
Subjective ROS Limited/Unobtainable: No Constitutional: Reports: no symptoms HEENT: Repors: no symptoms Allergies: Coded Allergies: No Known Allergies (Unverified , 12/06/19) Objective Last 24 Hour Vital Signs Date Time Temp Pulse Resp B/P (MAP) Pulse Ox O2 Delivery O2 Flow Rate FiO2 12/07/19 09:00 Room Air 12/07/19 08:00 61 12/07/19 08:00 97.7 61 18 123/53 (76) 96 12/07/19 04:00 97.5 84 17 130/62 (84) 98 12/07/19 04:00 57 12/07/19 00:00 97.8 82 17 125/58 (80) 97 12/07/19 00:00 71 12/06/19 21:00 Room Air 12/06/19 20:00 79 80 87 12/06/19 20:00 97.9 79 18 120/82 (95) 96 126/56 (79) 122/62 (82) 12/06/19 20:00 82 12/06/19 18:48 97.9 76 18 127/78 98 Room Air 98 12/06/19 16:30 Room Air 12/06/19 16:00 75 12/06/19 14:30 97.9 76 18 127/78 98 Room Air 12/06/19 13:10 98.6 79 19 134/66 99 Room Air Intake and Output 12/06/19 12/07/19 19:00 07:00 Intake Total 120 ml Output Total 300 ml Balance -180 ml Intake Oral 120 ml Output Urine Total 300 ml # Voids 5 # Bowel Movements 1 General Appearance: WD/WN HEENT: normocephalic, atraumatic Respiratory: chest wall non-tender, lungs clear, normal breath sounds Breasts: no masses Cardiovascular: normal peripheral pulses, normal rate, regular rhythm Abdomen: normal bowel sounds, soft, non tender, no organomegaly Neurologic: addictions recovery specialist II-XII grossly normal Laboratory Tests 12/07/19 01:00: Stool Occult Blood Negative 12/07/19 05:32: White Blood Count 11.8H, Red Blood Count 3.56L, Hemoglobin 11.4L, Hematocrit 32.5L, Mean Corpuscular Volume 91, Mean Corpuscular Hemoglobin 32.0H, Mean Corpuscular Hemoglobin Concent 35.1, Red Cell Distribution Width 11.5L, Platelet Count 262, Mean Platelet Volume 6.2L, Neutrophils (%) (Auto) , Lymphocytes (%) (Auto) , Monocytes (%) (Auto) , Eosinophils (%) (Auto) , Basophils (%) (Auto) , Differential Total Cells Counted 100, Neutrophils % (Manual) 90H, Lymphocytes % (Manual) 8L, Monocytes % (Manual) 2, Eosinophils % (Manual) 0, Basophils % (Manual) 0, Band Neutrophils 0, Platelet Estimate Adequate, Platelet Morphology Normal, Red Blood Cell Morphology Normal, Sodium Level 141, Potassium Level 3.5, Chloride Level 107, Carbon Dioxide Level 25, Anion Gap 9, Blood Urea Nitrogen 17, Creatinine 1.1, Estimat Glomerular Filtration Rate 47.8, Glucose Level 150H, Hemoglobin A1c 6.0, Calcium Level 8.7, Magnesium Level 2.0, Iron Level 79, Total Iron Binding Capacity 245L, Percent Iron Saturation 32, Unsaturated Iron Binding 166, Ferritin 242, Troponin I 0.000, Carcinoembryonic Antigen [Pending], CA 19-9 Antigen [Pending], Vitamin B12 Level 786, RBC Folate Hemolysate [Pending], Red Blood Cell Folate [Pending], Thyroid Stimulating Hormone (TSH) 1.177, Free Thyroxine 0.88 Current Medications Medications (Trade) Dose Ordered Sig/Dani Route PRN Reason Start Time Stop Time Status Last Admin Dose Admin Barium Sulfate (Readi-Cat 2) 450 ml NOW PRN ORAL Radiology Procedure 12/07/19 06:45 12/09/19 06:44 Ceftriaxone Sodium 1 gm/ Dextrose 55 ml @ 110 mls/hr Q24H IVPB 12/07/19 12:00 12/14/19 11:59 12/07/19 11:44 Dextrose (Dextrose 50%) 25 ml Q30M PRN IV Hypoglycemia 12/06/19 12:30 03/05/20 12:29 Dextrose (Dextrose 50%) 50 ml Q30M PRN IV Hypoglycemia 12/06/19 12:30 03/05/20 12:29 Dextrose/ Electrolytes 1,000 ml @ 75 mls/hr [id number] IV 12/06/19 14:00 01/05/20 13:59 12/06/19 17:24 Gadobutrol (Gadavist) 7.5 mmol NOW PRN IV Radiology Procedure 12/06/19 11:45 12/10/19 11:44 Heparin Sodium (Porcine) (Heparin 5000 units/ml) 5,000 units Q12HR SUBQ 12/07/19 09:00 01/21/20 08:59 12/07/19 09:11 Iohexol (OMNIPAQUE-300 100ml) 100 ml NOW PRN INJ Radiology Procedure 12/07/19 06:45 12/09/19 06:44 Iohexol (OMNIPAQUE-300 100ml) 100 ml ONCE INJ 12/07/19 06:45 01/06/20 08:45 Pantoprazole (Protonix) 40 mg BID IVP 12/06/19 18:00 01/05/20 17:59 12/07/19 09:08 Assessment/Plan Problems: (1) Syncope (2) Failure to thrive (3) Brain mass (4) Left hemiparesis Assessment/Plan echo reviewed: EF is 60% keep in telemetry tumor work up in process pt/ot monitor BP f/u h/h prbc prn GI evaluation scd for dvt prophylaxis Jelly Womack MD Dec 07, 2019 12:41
--- NOTE | 2019-12-07 13:55 | Diagnostic Imaging Report ---
CLINICAL INDICATION:Brain tumor, staging, evaluation for possible primary lesion TECHNIQUE: Patient ingested oral contrast. IV administration nonionic contrast. Multiphasic spiral acquisitions obtained through the chest, abdomen, and pelvis. Multiplanar reconstructions were generated. Total dose length product 476 mGycm. CTDIvol(s) 4, 41, 4, 5 mGy. Radiation dose was minimized using automated exposure control COMPARISON: none FINDINGS Chest: Atelectatic changes and possibly some scarring are present at the lung bases and there is some linear scarring at the left lung apex. The lungs and pleural spaces are otherwise clear. No infiltrates, effusions, masses, or nodules are demonstrated. The heart size is normal. No pericardial effusion. There is a moderate size sliding-type hiatal hernia. No mediastinal or hilar mass or adenopathy. The included portion of the thyroid is unremarkable. No axillary or chest wall mass or adenopathy. The bones demonstrate a wedge compression fracture deformity of the L1 vertebral body.. Abdomen pelvis: Normal appendix. There are colonic diverticula. No evidence of acute diverticulitis. No small bowel distention or small bowel wall thickening. The gallbladder has been removed. The liver, bile ducts, pancreas, spleen are unremarkable. The left adrenal demonstrates a 1.8 x 1.2 cm nodule. This demonstrates nonspecific attenuation. The right adrenal is diffusely somewhat bulky without definite discrete mass demonstrated. The right kidney demonstrates a 5 cm cyst coming off of the interpolar region. The left kidney demonstrates subcentimeter low-attenuation lesions in the lower pole which are too small to characterize. 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 No pelvic mass or adenopathy. No retroperitoneal or mesenteric mass or adenopathy. The bones demonstrate the previously described L1 compression fracture, are otherwise unremarkable. IMPRESSION: No evidence of primary or other malignancy to explain origin of previously reported brain mass 1.8 x 1.2 cm left adrenal nodule. Appearance nonspecific, statistically likely represents a benign adenoma but other etiologies also possible. Consider adrenal protocol CT or MRI to better characterize if clinically relevant L1 vertebral body compression fracture, age-indeterminate. Consider MRI for better characterization if clinically relevant Other findings as noted, including hiatal hernia, prior cholecystectomy, right renal cyst and probable left lower pole renal cysts The CT scanner at [facility] is accredited by the [employer] and the scans are performed using protocols designed to limit radiation exposure to as low as reasonably achievable to attain images of sufficient resolution adequate for diagnostic evaluation.
--- NOTE | 2019-12-07 14:43 | NUR ---
CASE MANAGEMENT:REVIEW 79 YR OLD FEMALE FROM HOME TO ER CC: WEAKNESS X2 WEEKS. S/P FALL. BLACK STOOLS SI: SYNCOPE. BRAIN EDEMA. MELENA `98.6 84 18 134/66 96% ON RA BUN+24 GLUCOSE+128 IS: 1L NS BOLUS IV PROTONIX IV DECADRON IV ROCEPHIN CT HEAD AND C-SPINE CHEST XRAY : TO TELEMETRY UNIT
[2019-12-07 16:00] VITALS: BP 117/59
--- NOTE | 2019-12-07 16:25 | Cardiology Report ---
APPROVED REPORT EKG Measurement Heart [id number] <Conclusion> Normal sinus rhythm Normal ECG
--- NOTE | 2019-12-07 18:40 | Internal Med Progress Note ---
Subjective Date of Service: Dec 07, 2019 Physician Name Heriberto Ashraf Attending Physician Pipo Valencia MD Current Medications Medications (Trade) Dose Ordered Sig/Dani Route PRN Reason Start Time Stop Time Status Last Admin Dose Admin Barium Sulfate (Readi-Cat 2) 450 ml NOW PRN ORAL Radiology Procedure 12/07/19 06:45 12/09/19 06:44 Ceftriaxone Sodium 1 gm/ Dextrose 55 ml @ 110 mls/hr Q24H IVPB 12/07/19 12:00 12/14/19 11:59 12/07/19 11:44 Dextrose (Dextrose 50%) 25 ml Q30M PRN IV Hypoglycemia 12/06/19 12:30 03/05/20 12:29 Dextrose (Dextrose 50%) 50 ml Q30M PRN IV Hypoglycemia 12/06/19 12:30 03/05/20 12:29 Dextrose/ Electrolytes 1,000 ml @ 75 mls/hr [id number] IV 12/06/19 14:00 01/05/20 13:59 12/07/19 18:06 Gadobutrol (Gadavist) 7.5 mmol NOW PRN IV Radiology Procedure 12/06/19 11:45 12/10/19 11:44 Iohexol (OMNIPAQUE-300 100ml) 100 ml NOW PRN INJ Radiology Procedure 12/07/19 06:45 12/09/19 06:44 Iohexol (OMNIPAQUE-300 100ml) 100 ml ONCE INJ 12/07/19 06:45 01/06/20 08:45 Pantoprazole (Protonix) 40 mg BID IVP 12/06/19 18:00 01/05/20 17:59 12/07/19 18:06 Allergies: Coded Allergies: No Known Allergies (Unverified , 12/06/19) ROS Limited/Unobtainable: No Constitutional: Reports: no symptoms HEENT: Reports: no symptoms Cardiovascular: Reports: no symptoms Respiratory: Reports: no symptoms Gastrointestinal/Abdominal: Reports: no symptoms Genitourinary: Reports: no symptoms Neurologic/Psychiatric: Reports: no symptoms Subjective 79 YO F admitted with vertigo, weakness and frequent falls. Now right brain tumor. Cover for Int Luis-Dr Valencia Objective Last Vital Signs Date Time Temp Pulse Resp B/P (MAP) Pulse Ox O2 Delivery O2 Flow Rate FiO2 10/13/20 16:00 97.7 75 18 117/59 (78) 100 12/07/19 09:00 Room Air 12/06/19 18:48 98 Laboratory Tests Test 12/07/19 01:00 12/07/19 05:32 Stool Occult Blood Negative (NEGATIVE) White Blood Count 11.8 K/UL (4.8-10.8) H Red Blood Count 3.56 M/UL (4.20-5.40) L Hemoglobin 11.4 G/DL (12.0-16.0) L Hematocrit 32.5 % (37.0-47.0) L Mean Corpuscular Volume 91 FL (80-99) Mean Corpuscular Hemoglobin 32.0 PG (27.0-31.0) H Mean Corpuscular Hemoglobin Concent 35.1 G/DL (32.0-36.0) Red Cell Distribution Width 11.5 % (11.6-14.8) L Platelet Count 262 K/UL (150-450) Mean Platelet Volume 6.2 FL (6.5-10.1) L Neutrophils (%) (Auto) % (45.0-75.0) Lymphocytes (%) (Auto) % (20.0-45.0) Monocytes (%) (Auto) % (1.0-10.0) Eosinophils (%) (Auto) % (0.0-3.0) Basophils (%) (Auto) % (0.0-2.0) Differential Total Cells Counted 100 Neutrophils % (Manual) 90 % (45-75) H Lymphocytes % (Manual) 8 % (20-45) L Monocytes % (Manual) 2 % (1-10) Eosinophils % (Manual) 0 % (0-3) Basophils % (Manual) 0 % (0-2) Band Neutrophils 0 % (0-8) Platelet Estimate Adequate Platelet Morphology Normal Red Blood Cell Morphology Normal Sodium Level 141 MMOL/L (136-145) Potassium Level 3.5 MMOL/L (3.5-5.1) Chloride Level 107 MMOL/L (98-107) Carbon Dioxide Level 25 MMOL/L (21-32) Anion Gap 9 mmol/L (5-15) Blood Urea Nitrogen 17 mg/dL (7-18) Creatinine 1.1 MG/DL (0.55-1.30) Estimat Glomerular Filtration Rate 47.8 mL/min (>60) Glucose Level 150 MG/DL (74-106) H Hemoglobin A1c 6.0 % (4.3-6.0) Calcium Level 8.7 MG/DL (8.5-10.1) Magnesium Level 2.0 MG/DL (1.8-2.4) Iron Level 79 ug/dL (50-175) Total Iron Binding Capacity 245 ug/dL (250-450) L Percent Iron Saturation 32 % (15-50) Unsaturated Iron Binding 166 ug/dL (112-346) Ferritin 242 NG/ML (8-388) Troponin I 0.000 ng/mL (0.000-0.056) Carcinoembryonic Antigen Pending CA 19-9 Antigen Pending Vitamin B12 Level 786 PG/ML (193-986) RBC Folate Hemolysate Pending Red Blood Cell Folate Pending Thyroid Stimulating Hormone (TSH) 1.177 uiU/mL (0.358-3.740) Free Thyroxine 0.88 NG/DL (0.76-1.46) Intake and Output 12/06/19 12/07/19 19:00 07:00 Intake Total 120 ml Output Total 300 ml Balance -180 ml Intake Oral 120 ml Output Urine Total 300 ml # Voids 5 # Bowel Movements 1 Assessment/Plan Assessment/Plan ASSESSMENT: This is an 79-year-old female with: 1. Left-sided weakness, left hemiparesis. 2. Frequent falls. 3. Iron deficiency anemia. 4. Hypercholesterolemia. 5. Vitamin D deficiency. 6. MRI brain = right parietal brain mass TREATMENT: 1. Left-sided weakness/vertigo/multiple falls. continue Physical therapy 2. Right parietal mass-needs neurosurgery consult. Transfer to [facility] for higher level of care. 3. Edema of the right parietal lobe is due to brain mass.?IV solumedrol vs decadron? 4. Hypercholesterolemia. Continue atorvastatin as above. 5. Iron deficiency anemia. The patient is currently not anemic. 6. Vitamin D deficiency. Heriberto Ashraf MD Dec 07, 2019 18:40
--- NOTE | 2019-12-07 19:35 | NUR ---
NURSE HAND-OFF REPORT: Important Events on Shift:CT CHEST/ABDOMEN/PELVIS Patient Status: Diet: Pending Orders: Pending Results/Labs: Pending MD notification: Latest Vital Signs: Temperature 97.7 , Pulse 75 , B/P 117 /59 , Respiratory Rate 18 , O2 SAT 100 , Room Air, O2 Flow Rate . Vital Sign Comment: EKG Rhythm: Sinus Rhythm Rhythm change?: N MD Notified?: - MD Response: Latest Ellis Fall Score: 55 Fall Risk: High Risk Safety Measures: Call light Within Reach, Bed Alarm Zone 2, Side Rails Side Rails x2, Bed position Low and Locked. Fall Precautions: Yellow Socks Yellow Gown Door Sign Patient Fall Education Report given to .
--- NOTE | 2019-12-07 19:45 | NUR ---
NURSE NOTES: Report received from Venkata COLON. Patient is noted to be awake and alert x 4. Patient is noted to be on room air with no complaints of chest pain or shortness of breath at this time. Patient has no complaints of pain at this time. Patient is noted to have right AC 22 tanner IV access with fluids running per MD orders. Was endorsed that patient had CT of chest, abdomen, and pelvis. Results endorsed to Harinder COLON. Endorsed to Harinder COLON that patient has case management order in placed to be transferred to another hospital for a high level of care. Bed is locked and in lowest position. Patient verbalized that she will call prior to getting up. Call light in reach. Will continue to follow plan of care.
[2019-12-07 20:00] VITALS: BP 114/42
[2019-12-08] VITALS: BP 118/41
--- NOTE | 2019-12-08 01:16 | Cardiology Progress Note ---
Subjective DATE OF SERVICE: Dec 07, 2019 No noted seizures Still ataxic with unsteady gait and left weakness MRI findings noted MONITOR: sinus with no ectopy Objective Last 24 Hour Vital Signs Date Time Temp Pulse Resp B/P (MAP) Pulse Ox O2 Delivery O2 Flow Rate FiO2 12/08/19 00:00 56 12/08/19 00:00 98.1 60 17 118/41 (66) 95 12/07/19 21:00 Room Air 12/07/19 20:00 64 12/07/19 20:00 97.9 62 16 114/42 (66) 95 12/07/19 16:00 97.7 75 18 117/59 (78) 100 12/07/19 16:00 75 12/07/19 12:00 66 12/07/19 12:00 97.9 66 20 114/50 (71) 98 12/07/19 09:00 Room Air 12/07/19 08:00 61 76 68 12/07/19 08:00 61 12/07/19 08:00 97.7 61 18 123/53 (76) 96 12/07/19 04:00 97.5 84 17 130/62 (84) 98 12/07/19 04:00 57 ROS: unchanged from my evaluation of 12/06/19 HEENT: normal ENT inspection RHYTHM: NSR LUNGS: lungs clear bilaterally CARDIAC: normal rate, regular rhythm, normal S1 and S2 ABDOMEN: normal bowel sounds, non tender, soft, no organomegaly EXTREMITIES: No edema, other - Left sided weakness Laboratory Tests Test 12/07/19 05:32 White Blood Count 11.8 K/UL (4.8-10.8) H Red Blood Count 3.56 M/UL (4.20-5.40) L Hemoglobin 11.4 G/DL (12.0-16.0) L Hematocrit 32.5 % (37.0-47.0) L Mean Corpuscular Volume 91 FL (80-99) Mean Corpuscular Hemoglobin 32.0 PG (27.0-31.0) H Mean Corpuscular Hemoglobin Concent 35.1 G/DL (32.0-36.0) Red Cell Distribution Width 11.5 % (11.6-14.8) L Platelet Count 262 K/UL (150-450) Mean Platelet Volume 6.2 FL (6.5-10.1) L Neutrophils (%) (Auto) % (45.0-75.0) Lymphocytes (%) (Auto) % (20.0-45.0) Monocytes (%) (Auto) % (1.0-10.0) Eosinophils (%) (Auto) % (0.0-3.0) Basophils (%) (Auto) % (0.0-2.0) Differential Total Cells Counted 100 Neutrophils % (Manual) 90 % (45-75) H Lymphocytes % (Manual) 8 % (20-45) L Monocytes % (Manual) 2 % (1-10) Eosinophils % (Manual) 0 % (0-3) Basophils % (Manual) 0 % (0-2) Band Neutrophils 0 % (0-8) Platelet Estimate Adequate Platelet Morphology Normal Red Blood Cell Morphology Normal Sodium Level 141 MMOL/L (136-145) Potassium Level 3.5 MMOL/L (3.5-5.1) Chloride Level 107 MMOL/L (98-107) Carbon Dioxide Level 25 MMOL/L (21-32) Anion Gap 9 mmol/L (5-15) Blood Urea Nitrogen 17 mg/dL (7-18) Creatinine 1.1 MG/DL (0.55-1.30) Estimat Glomerular Filtration Rate 47.8 mL/min (>60) Glucose Level 150 MG/DL (74-106) H Hemoglobin A1c 6.0 % (4.3-6.0) Calcium Level 8.7 MG/DL (8.5-10.1) Magnesium Level 2.0 MG/DL (1.8-2.4) Iron Level 79 ug/dL (50-175) Total Iron Binding Capacity 245 ug/dL (250-450) L Percent Iron Saturation 32 % (15-50) Unsaturated Iron Binding 166 ug/dL (112-346) Ferritin 242 NG/ML (8-388) Troponin I 0.000 ng/mL (0.000-0.056) Carcinoembryonic Antigen Pending CA 19-9 Antigen Pending Vitamin B12 Level 786 PG/ML (193-986) RBC Folate Hemolysate Pending Red Blood Cell Folate Pending Thyroid Stimulating Hormone (TSH) 1.177 uiU/mL (0.358-3.740) Free Thyroxine 0.88 NG/DL (0.76-1.46) Assessment/Plan Assessment/Plan Brain tumor - R parietal with edema and midline shift Ataxia due to above Left paresis due to above Near syncope due to above Recommend decadron and anti-sz medx DC telemetry Kwaku Mcguire MD Dec 08, 2019 01:16
[2019-12-08 04:00] VITALS: BP 125/62
[2019-12-08] MEDS: D5 1/2NS w/KCL 10meq 1,000 ML IV SCH ×3 (05:17→23:15)
[2019-12-08 06:42] LABS: BASOPHILS % (AUTO) 1.3 % (0.0-2.0); EOSINOPHILS % (AUTO) 3.1 % (0.0-3.0); HEMATOCRIT 33.2 % (37.0-47.0); HEMOGLOBIN 11.7 G/DL (12.0-16.0); LYMPHOCYTES % (AUTO) 31.4 % (20.0-45.0); MEAN CORPUSCULAR VOLUME 92 FL (80-99); MONOCYTES % (AUTO) 6.5 % (1.0-10.0); NEUTROPHILS % (AUTO) 57.7 % (45.0-75.0); PLATELET COUNT 262 K/UL (150-450); RED BLOOD COUNT 3.62 M/UL (4.20-5.40); RED CELL DISTRIBUTION WIDTH 11.6 % (11.6-14.8); WHITE BLOOD COUNT 8.6 K/UL (4.8-10.8)
[2019-12-08] MEDS: Omnipaque-300 100ml vial INJ SCH (06:45)
[2019-12-08 07:02] LABS: ALBUMIN 2.8 G/DL (3.4-5.0); ALBUMIN/GLOBULIN RATIO 1.1 (1.0-2.7); BILIRUBIN,TOTAL 0.3 MG/DL (0.2-1.0); CALCIUM 8.2 MG/DL (8.5-10.1); CREATININE 1.2 MG/DL (0.55-1.30); PHOSPHORUS 3.1 MG/DL (2.5-4.9); POTASSIUM 3.5 MMOL/L (3.5-5.1)
--- NOTE | 2019-12-08 07:26 | NUR ---
NURSE HAND-OFF REPORT: Important Events on Shift: Patient is a high fall risk. Patient gets up frequently to bedside commode, calls for help. patient has active order to be transferred to med surg. Patient Status: full code Diet: regular, soft easy chew Pending Orders: transfer to med surg Pending Results/Labs:none Pending MD notification:none Latest Vital Signs: Temperature 98.0 , Pulse 60 , B/P 125 /62 , Respiratory Rate 18 , O2 SAT 98 , Room Air, O2 Flow Rate . Vital Sign Comment: within normal limits. EKG Rhythm: Sinus Rhythm Rhythm change?: N MD Notified?: - MD Response: Latest Ellis Fall Score: 55 Fall Risk: High Risk Safety Measures: Call light Within Reach, Bed Alarm Zone 2, Side Rails Side Rails x2, Bed position Low and Locked. Fall Precautions: Yellow Socks Yellow Gown Door Sign Patient Fall Education Report given to Yaw COLON.
--- NOTE | 2019-12-08 07:37 | NUR ---
NURSE NOTES: Pt in bed in low position, bed alarm on, pt was in supine position when entered the room, breakfast tray at bedside, pt is able to eat on her own with no assistance, IV on left AC leaking will have to switch out, pt is alert Ox4 Japanese speaker with some Estonian, pt denies pain, no distress or SOB noted, transfer order already in. Pt is aware of transfer to [facility] and [facility] for Brain mass assessment and possible removal.
--- NOTE | 2019-12-08 07:48 | NUR ---
CASE MANAGEMENT:REVIEW 12/08/19 SI: BRAIN TUMOR. ATAXIA 98.0 67 18 125/62 98% ON RA H/H-11.7/33.2 IS: IV ROCEPHIN Q24 IVF@75/HR : TELEMETRY STATUS DCP: FROM HOME PLAN: TRANSFER TO [facility] FOR HIGHER LEVEL OF CARE
--- NOTE | 2019-12-08 07:53 | NUR ---
TRANSFER UPDATE CALLED [facility] AND SPOKE WITH [place] HO PATIENT IS NOT ON THE LIST FOR TRANSFER BUT REQUESTED SUPPORTIVE DOCUMENTATION BE FAXED TO THE TRANSFER CENTER FAXED CLINICALS TO [facility] T: [phone] F: [phone]
[2019-12-08 08:24] VITALS: BP 122/46
--- NOTE | 2019-12-08 09:59 | NUR ---
NURSE NOTES: Transfering patent now to the 3rd floor
--- NOTE | 2019-12-08 10:10 | NUR ---
NURSE NOTES: PATIENT RECEIVED FROM [facility] BY BED. FRIEND AT BEDSIDE. AOX4. HEAD TO TOE ASSESSMENT DONE. DENIES PAIN. QUESTIONS ANSWERED, NEEDS MET. DISCUSSED PLAN OF CARE FOR THE DAY. ACKNOWLEDGED UNDERSTANDING. PATIENT ORIENTED TO ROOM. BED IN LOW AND LOCKED POSITION. WILL CONTINUE TO MONITOR.
--- NOTE | 2019-12-08 10:26 | NUR ---
NURSE NOTES: Endorsed plan of care to Sally Rich, possible transfer to [facility]
--- NOTE | 2019-12-08 10:37 | Pulmonology Progress Note ---
Subjective ROS Limited/Unobtainable: No Constitutional: Reports: no symptoms HEENT: Repors: no symptoms Allergies: Coded Allergies: No Known Allergies (Unverified , 12/06/19) Objective Last 24 Hour Vital Signs Date Time Temp Pulse Resp B/P (MAP) Pulse Ox O2 Delivery O2 Flow Rate FiO2 12/08/19 08:24 98.2 70 18 122/46 (71) 96 12/08/19 08:09 Room Air 12/08/19 07:46 72 12/08/19 04:00 98.0 67 18 125/62 (83) 98 12/08/19 04:00 60 12/08/19 00:00 56 12/08/19 00:00 98.1 60 17 118/41 (66) 95 12/07/19 21:00 Room Air 12/07/19 20:00 64 12/07/19 20:00 97.9 62 16 114/42 (66) 95 12/07/19 20:00 75 78 88 12/07/19 16:00 97.7 75 18 117/59 (78) 100 12/07/19 16:00 75 12/07/19 12:00 66 12/07/19 12:00 97.9 66 20 114/50 (71) 98 Intake and Output 12/07/19 12/08/19 19:00 07:00 Intake Total 360 ml 1065 ml Output Total 750 ml 300 ml Balance -390 ml 765 ml Intake Oral 360 ml 240 ml IV Total 825 ml Output Urine Total 750 ml 300 ml # Voids 3 # Bowel Movements 1 General Appearance: WD/WN HEENT: normocephalic, atraumatic Respiratory: chest wall non-tender, lungs clear, normal breath sounds Breasts: no masses Cardiovascular: normal peripheral pulses, normal rate, regular rhythm Abdomen: normal bowel sounds, soft, non tender, no organomegaly Genitourinary: normal external genitalia Neurologic: supervisor area II-XII grossly normal Lymphatic: no neck adenopathy Laboratory Tests 12/08/19 05:30: White Blood Count 8.6, Red Blood Count 3.62L, Hemoglobin 11.7L, Hematocrit 33.2L , Mean Corpuscular Volume 92, Mean Corpuscular Hemoglobin 32.3H, Mean Cor puscular Hemoglobin Concent 35.2, Red Cell Distribution Width 11.6, Platelet Count 262, Mean Platelet Volume 6.0L, Neutrophils (%) (Auto) 57.7, Lymphocytes (%) (Auto) 31.4, Monocytes (%) (Auto) 6.5, Eosinophils (%) (Auto) 3.1H, Basophils (%) (Auto) 1.3, Erythrocyte Sedimentation Rate 35H, Reticulocyte Count [Pending], Sodium Level 142, Potassium Level 3.5, Chloride Level 108H, Carbon Dioxide Level 26, Anion Gap 8, Blood Urea Nitrogen 15, Creatinine 1.2, Estimat Glomerular Filtration Rate 43.3, Glucose Level 98, Calcium Level 8.2L, Phosphorus Level 3.1, Magnesium Level 1.8, Total Bilirubin 0.3, Aspartate Amino Transf (AST/SGOT) 27, Alanine Aminotransferase (ALT/SGPT) 21, Alkaline Phosphatase 74, Lactate Dehydrogenase 194, Total Protein 5.4L, Albumin 2.8L, Globulin 2.6, Albumin/Globulin Ratio 1.1 Current Medications Medications (Trade) Dose Ordered Sig/Dani Route PRN Reason Start Time Stop Time Status Last Admin Dose Admin Barium Sulfate (Readi-Cat 2) 450 ml NOW PRN ORAL Radiology Procedure 12/07/19 06:45 12/09/19 06:44 Ceftriaxone Sodium 1 gm/ Dextrose 55 ml @ 110 mls/hr Q24H IVPB 12/07/19 12:00 12/14/19 11:59 12/07/19 11:44 Dextrose (Dextrose 50%) 25 ml Q30M PRN IV Hypoglycemia 12/06/19 12:30 03/05/20 12:29 Dextrose (Dextrose 50%) 50 ml Q30M PRN IV Hypoglycemia 12/06/19 12:30 03/05/20 12:29 Dextrose/ Electrolytes 1,000 ml @ 75 mls/hr [id number] IV 12/06/19 14:00 01/05/20 13:59 12/07/19 18:06 Gadobutrol (Gadavist) 7.5 mmol NOW PRN IV Radiology Procedure 12/06/19 11:45 12/10/19 11:44 Iohexol (OMNIPAQUE-300 100ml) 100 ml NOW PRN INJ Radiology Procedure 12/07/19 06:45 12/09/19 06:44 Iohexol (OMNIPAQUE-300 100ml) 100 ml ONCE INJ 12/07/19 06:45 01/06/20 08:45 Pantoprazole (Protonix) 40 mg EVERY 12 HOURS ORAL 12/08/19 10:00 01/07/20 09:59 12/08/19 09:54 Assessment/Plan Problems: (1) Syncope (2) Failure to thrive (3) Brain mass (4) Left hemiparesis Assessment/Plan awaiting neuro consult on Decadron for brain edema echo reviewed: EF is 60% keep in telemetry tumor work up in process, CT chest and abdomen reviewed, no primary tumor located pt/ot monitor BP f/u h/h prbc prn scd for dvt prophylaxis Jelly Womack MD Dec 08, 2019 10:37
--- NOTE | 2019-12-08 11:34 | Hematology/Onc Progress Note ---
Assessment/Plan Assessment/Plan Assessment and recs # Brain mass with midline shift - Enhancing mass in the high right parietal lobe near the vertex with peripheral enhancement and central enhancement and surrounding edema. Tumor versus abscess, favor tumor. Unusual pattern of enhancement in the right parietal lobe, superomedial temporal lobe, and basal ganglia region, also extending into the posterior right frontal lobe, across the posterior corpus callosum and into the left parietal deep white matter. --> she is [place] speaking and does recound has a history of skin cancer, may be melanoma v other malignancy --> obtain ct c/a/p-->neg for mass --> consider neurosurgery eal, may need transfer to high level of care --> tumor markers ordered, cea 1.3 --> consider endscopy as needed per gi # Anemia due to iron deficiency --> continue on po iron --> hgb currently stable # Brain edema --> steriods as per neuro eval --> may need resection/biopsy # Unilateral weakness --> likely due to above # Syncope # Fall # Melena # Dvt ppx scds Appreciate consultation and dw RN Subjective Constitutional: Denies: no symptoms, chills, fever, malaise, weakness, other HEENT: Denies: no symptoms, eye pain, blurred vision, tearing, double vision, ear pain, ear discharge, nose pain, nose congestion, throat pain, throat s welling, mouth pain, mouth swelling, other Cardiovascular: Denies: no symptoms, chest pain, edema, irregular heart rate, lightheadedness, palpitations, syncope, other Respiratory: Denies: no symptoms, cough, shortness of breath, SOB with excertion, SOB at rest, sputum, wheezing, other Gastrointestinal/Abdominal: Denies: no symptoms, abdomen distended, abdominal pain, black stools, tarry stools, blood in stool, constipated, diarrhea, difficulty swallowing, nausea, poor appetite, poor fluid intake, rectal bleeding, vomiting, other Genitourinary: Denies: no symptoms, burning, discharge, frequency, flank pain, hematuria, incontinence, pain, urgency, other Neurologic/Psychiatric: Denies: no symptoms, anxiety, depressed, emotional problems, headache, numbness, paresthesia, pre-existing deficit, seizure, tingling, tremors, weakness, other Endocrine: Denies: no symptoms, excessive sweating, flushing, intolerance to cold, intolerance to heat, increased hunger, increased thirst, increased urine, unexplained weight gain, unexplained weight loss, other Allergies: Coded Allergies: No Known Allergies (Unverified , 12/06/19) Subjective 12/07 has been started on dex, no bleeding, labs noted, hgb 11.7 Objective Objective Current Medications Medications (Trade) Dose Ordered Sig/Dani Route PRN Reason Start Time Stop Time Status Last Admin Dose Admin Barium Sulfate (Readi-Cat 2) 450 ml NOW PRN ORAL Radiology Procedure 12/07/19 06:45 12/09/19 06:44 Ceftriaxone Sodium 1 gm/ Dextrose 55 ml @ 110 mls/hr Q24H IVPB 12/07/19 12:00 12/14/19 11:59 12/07/19 11:44 Dexamethasone Sodium Phosphate (Decadron 4mg/ml vial) 4 mg Q6HR IVP 12/08/19 12:00 12/18/19 11:59 Dextrose (Dextrose 50%) 25 ml Q30M PRN IV Hypoglycemia 12/06/19 12:30 03/05/20 12:29 Dextrose (Dextrose 50%) 50 ml Q30M PRN IV Hypoglycemia 12/06/19 12:30 03/05/20 12:29 Dextrose/ Electrolytes 1,000 ml @ 75 mls/hr [id number] IV 12/06/19 14:00 01/05/20 13:59 12/07/19 18:06 Gadobutrol (Gadavist) 7.5 mmol NOW PRN IV Radiology Procedure 12/06/19 11:45 12/10/19 11:44 Iohexol (OMNIPAQUE-300 100ml) 100 ml NOW PRN INJ Radiology Procedure 12/07/19 06:45 12/09/19 06:44 Iohexol (OMNIPAQUE-300 100ml) 100 ml ONCE INJ 12/07/19 06:45 01/06/20 08:45 Pantoprazole (Protonix) 40 mg EVERY 12 HOURS ORAL 12/08/19 10:00 01/07/20 09:59 12/08/19 09:54 Last 24 Hour Vital Signs Date Time Temp Pulse Resp B/P (MAP) Pulse Ox O2 Delivery O2 Flow Rate FiO2 12/08/19 08:24 98.2 70 18 122/46 (71) 96 12/08/19 08:09 Room Air 12/08/19 07:46 72 12/08/19 04:00 98.0 67 18 125/62 (83) 98 12/08/19 04:00 60 12/08/19 00:00 56 12/08/19 00:00 98.1 60 17 118/41 (66) 95 12/07/19 21:00 Room Air 12/07/19 20:00 64 12/07/19 20:00 97.9 62 16 114/42 (66) 95 12/07/19 20:00 75 78 88 12/07/19 16:00 97.7 75 18 117/59 (78) 100 12/07/19 16:00 75 12/07/19 12:00 66 12/07/19 12:00 97.9 66 20 114/50 (71) 98 12/07/19 09:00 Room Air 12/07/19 08:00 61 76 68 12/07/19 08:00 61 12/07/19 08:00 97.7 61 18 123/53 (76) 96 12/07/19 04:00 97.5 84 17 130/62 (84) 98 12/07/19 04:00 57 12/07/19 00:00 97.8 82 17 125/58 (80) 97 12/07/19 00:00 71 12/06/19 21:00 Room Air 12/06/19 20:00 79 80 87 12/06/19 20:00 97.9 79 18 120/82 (95) 96 126/56 (79) 122/62 (82) 12/06/19 20:00 82 12/06/19 18:48 97.9 76 18 127/78 98 Room Air 98 12/06/19 16:30 Room Air 12/06/19 16:00 75 12/06/19 14:30 97.9 76 18 127/78 98 Room Air 12/06/19 13:10 98.6 79 19 134/66 99 Room Air Intake and Output 12/07/19 12/08/19 19:00 07:00 Intake Total 360 ml 1065 ml Output Total 750 ml 300 ml Balance -390 ml 765 ml Intake Oral 360 ml 240 ml IV Total 825 ml Output Urine Total 750 ml 300 ml # Voids 3 # Bowel Movements 1 Labs Test 12/06/19 10:08 12/06/19 10:55 12/07/19 01:00 12/07/19 05:32 White Blood Count 7.9 K/UL (4.8-10.8) 11.8 K/UL (4.8-10.8) Red Blood Count 3.93 M/UL (4.20-5.40) 3.56 M/UL (4.20-5.40) Hemoglobin 12.7 G/DL (12.0-16.0) 11.4 G/DL (12.0-16.0) Hematocrit 35.7 % (37.0-47.0) 32.5 % (37.0-47.0) Mean Corpuscular Volume 91 FL (80-99) 91 FL (80-99) Mean Corpuscular Hemoglobin 32.3 PG (27.0-31.0) 32.0 PG (27.0-31.0) Mean Corpuscular Hemoglobin Concent 35.5 G/DL (32.0-36.0) 35.1 G/DL (32.0-36.0) Red Cell Distribution Width 11.1 % (11.6-14.8) 11.5 % (11.6-14.8) Platelet Count 301 K/UL (150-450) 262 K/UL (150-450) Mean Platelet Volume 5.9 FL (6.5-10.1) 6.2 FL (6.5-10.1) Neutrophils (%) (Auto) 77.2 % (45.0-75.0) % (45.0-75.0) Lymphocytes (%) (Auto) 14.9 % (20.0-45.0) % (20.0-45.0) Monocytes (%) (Auto) 6.9 % (1.0-10.0) % (1.0-10.0) Eosinophils (%) (Auto) 0.1 % (0.0-3.0) % (0.0-3.0) Basophils (%) (Auto) 0.9 % (0.0-2.0) % (0.0-2.0) Prothrombin Time 10.7 SEC (9.30-11.50) Prothromb Time International Ratio 1.0 (0.9-1.1) Activated Partial Thromboplast Time 26 SEC (23-33) Sodium Level 139 MMOL/L (136-145) 141 MMOL/L (136-145) Potassium Level 3.6 MMOL/L (3.5-5.1) 3.5 MMOL/L (3.5-5.1) Chloride Level 103 MMOL/L (98-107) 107 MMOL/L (98-107) Carbon Dioxide Level 28 MMOL/L (21-32) 25 MMOL/L (21-32) Anion Gap 8 mmol/L (5-15) 9 mmol/L (5-15) Blood Urea Nitrogen 24 mg/dL (7-18) 17 mg/dL (7-18) Creatinine 1.2 MG/DL (0.55-1.30) 1.1 MG/DL (0.55-1.30) Estimat Glomerular Filtration Rate 43.3 mL/min (>60) 47.8 mL/min (>60) Glucose Level 128 MG/DL (74-106) 150 MG/DL (74-106) Calcium Level 9.3 MG/DL (8.5-10.1) 8.7 MG/DL (8.5-10.1) Total Bilirubin 0.3 MG/DL (0.2-1.0) Aspartate Amino Transf (AST/SGOT) 23 U/L (15-37) Alanine Aminotransferase (ALT/SGPT) 22 U/L (12-78) Alkaline Phosphatase 91 U/L (46-116) Total Creatine Kinase 166 U/L (26-308) Troponin I 0.000 ng/mL (0.000-0.056) 0.000 ng/mL (0.000-0.056) Pro-B-Type Natriuretic Peptide 198 pg/mL (0-125) Total Protein 6.6 G/DL (6.4-8.2) Albumin 3.4 G/DL (3.4-5.0) Globulin 3.2 g/dL Albumin/Globulin Ratio 1.1 (1.0-2.7) Urine Color Yellow Urine Appearance Clear Urine pH 5 (4.5-8.0) Urine Specific [place] 1.015 (1.005-1.035) Urine Protein 1+ (NEGATIVE) Urine Glucose (UA) Negative (NEGATIVE) Urine Ketones Negative (NEGATIVE) Urine Blood 1+ (NEGATIVE) Urine Nitrite Negative (NEGATIVE) Urine Bilirubin Negative (NEGATIVE) Urine Urobilinogen Normal MG/DL (0.0-1.0) Urine Leukocyte Esterase Negative (NEGATIVE) Urine RBC 0-2 /HPF (0 - 2) Urine WBC 0 /HPF (0 - 2) Urine Squamous Epithelial Cells Occasional /LPF Urine Bacteria Occasional /HPF (NONE) Urine Opiates Screen Negative (NEGATIVE) Urine Barbiturates Screen Negative (NEGATIVE) Phencyclidine (PCP) Screen Negative (NEGATIVE) Urine Amphetamines Screen Negative (NEGATIVE) Urine Benzodiazepines Screen Negative (NEGATIVE) Urine Cocaine Screen Negative (NEGATIVE) Urine Marijuana (THC) Screen Negative (NEGATIVE) Stool Occult Blood Negative (NEGATIVE) Differential Total Cells Counted 100 Neutrophils % (Manual) 90 % (45-75) Lymphocytes % (Manual) 8 % (20-45) Monocytes % (Manual) 2 % (1-10) Eosinophils % (Manual) 0 % (0-3) Basophils % (Manual) 0 % (0-2) Band Neutrophils 0 % (0-8) Platelet Estimate Adequate Platelet Morphology Normal Red Blood Cell Morphology Normal Hemoglobin A1c 6.0 % (4.3-6.0) Magnesium Level 2.0 MG/DL (1.8-2.4) Iron Level 79 ug/dL (50-175) Total Iron Binding Capacity 245 ug/dL (250-450) Percent Iron Saturation 32 % (15-50) Unsaturated Iron Binding 166 ug/dL (112-346) Ferritin 242 NG/ML (8-388) Carcinoembryonic Antigen 1.3 ng/mL (0.0-4.7) Vitamin B12 Level 786 PG/ML (193-986) Thyroid Stimulating Hormone (TSH) 1.177 uiU/mL (0.358-3.740) Free Thyroxine 0.88 NG/DL (0.76-1.46) Test 12/08/19 05:30 White Blood Count 8.6 K/UL (4.8-10.8) Red Blood Count 3.62 M/UL (4.20-5.40) Hemoglobin 11.7 G/DL (12.0-16.0) Hematocrit 33.2 % (37.0-47.0) Mean Corpuscular Volume 92 FL (80-99) Mean Corpuscular Hemoglobin 32.3 PG (27.0-31.0) Mean Corpuscular Hemoglobin Concent 35.2 G/DL (32.0-36.0) Red Cell Distribution Width 11.6 % (11.6-14.8) Platelet Count 262 K/UL (150-450) Mean Platelet Volume 6.0 FL (6.5-10.1) Neutrophils (%) (Auto) 57.7 % (45.0-75.0) Lymphocytes (%) (Auto) 31.4 % (20.0-45.0) Monocytes (%) (Auto) 6.5 % (1.0-10.0) Eosinophils (%) (Auto) 3.1 % (0.0-3.0) Basophils (%) (Auto) 1.3 % (0.0-2.0) Erythrocyte Sedimentation Rate 35 MM/HR (0-30) Reticulocyte Count 1.6 % (0.5-2.0) Sodium Level 142 MMOL/L (136-145) Potassium Level 3.5 MMOL/L (3.5-5.1) Chloride Level 108 MMOL/L (98-107) Carbon Dioxide Level 26 MMOL/L (21-32) Anion Gap 8 mmol/L (5-15) Blood Urea Nitrogen 15 mg/dL (7-18) Creatinine 1.2 MG/DL (0.55-1.30) Estimat Glomerular Filtration Rate 43.3 mL/min (>60) Glucose Level 98 MG/DL (74-106) Calcium Level 8.2 MG/DL (8.5-10.1) Phosphorus Level 3.1 MG/DL (2.5-4.9) Magnesium Level 1.8 MG/DL (1.8-2.4) Total Bilirubin 0.3 MG/DL (0.2-1.0) Aspartate Amino Transf (AST/SGOT) 27 U/L (15-37) Alanine Aminotransferase (ALT/SGPT) 21 U/L (12-78) Alkaline Phosphatase 74 U/L (46-116) Lactate Dehydrogenase 194 U/L (81-234) Total Protein 5.4 G/DL (6.4-8.2) Albumin 2.8 G/DL (3.4-5.0) Globulin 2.6 g/dL Albumin/Globulin Ratio 1.1 (1.0-2.7) Height (Feet): 5 Height (Inches): 1.00 Weight (Pounds): 150 Objective Vital Signs: reviewed General Appearance: GCS 15, non-toxic Heent: hearing grossly normal, normal pharynx, no angioedema, normal voice Neck: full range of motion, supple/symm/no masses Respiratory: chest non-tender, lungs clear, normal breath sounds, speaking full sentences Cardiovascular: regular rate, rhythm, no edema Gastrointestinal: normal bowel sounds, non tender, soft Rectal: deferred Neurologic: alert, motor strength/tone normal Lymphatic: no adenopathy Seamus Swartz MD Dec 08, 2019 11:33
[2019-12-08] MEDS: cefTRIAXone 1 GM in D5W 55 ML IVPB SCH (11:41)
--- NOTE | 2019-12-08 11:47 | NUR ---
TRANSFER UPDATE [facility] IS REQUESTING COVID RESULTS STAT RAPID COVID ORDERED. ONCE RESULTED WILL FAX TO [facility]
[2019-12-08 12:00] VITALS: BP 125/57
--- NOTE | 2019-12-08 12:15 | Consultation ---
DATE OF CONSULTATION: 12/08/2019 CHIEF COMPLAINT: Anemia. HISTORY OF PRESENT ILLNESS: The patient is a pleasant 79-year-old female with new diagnosis of brain tumor, apparently pending to be transferred to [facility] for that, admitted to [facility] with complaint of increasing weakness and was found to be anemic so GI consult requested for further evaluation. According to the family at the bedside, the patient has been anemic, diagnosed with anemia before. No prior history of blood transfusion. No prior history of endoscopy or colonoscopy. At this time, the patient denies any abdominal pain. No nausea. No vomiting. No dysphagia. No odynophagia. She complained of some dark stools, but no obvious melena. No hematochezia. PAST MEDICAL HISTORY: Significant for: 1. History of hypercholesteremia. 2. Iron-deficiency anemia. 3. Vitamin D deficiency. 4. diagnosis of brain tumor. ALLERGIES: No known allergies. MEDICATIONS: Please see medication reconciliation list. PAST SURGICAL HISTORY: 1. Cholecystectomy. 2. Cataract surgery. REVIEW OF SYSTEMS: A 10-point review of systems performed and pertinent positives dictated in HPI. PHYSICAL EXAMINATION: GENERAL: The patient is well-developed female, in no acute distress. VITAL SIGNS: Temperature is 98.2, pulse 70, respirations 18, blood pressure is 122/46. HEENT: Normocephalic and atraumatic. Sclerae are anicteric. NECK: Supple. No evidence of obvious lymphadenopathy. CARDIOVASCULAR: Regular rate and rhythm. Plus S1 and S2. LUNGS: Clear to auscultation bilaterally. ABDOMEN: Positive bowel sounds. Soft and nontender. No rebound. No guarding. No peritoneal sign. EXTREMITIES: No cyanosis. No clubbing. No edema. LABORATORY AND DIAGNOSTIC DATA: White count is 8.6, hemoglobin 11.7, hematocrit 33, platelet count is 262. CEA level is 1.3. Liver function normal. ASSESSMENT AND PLAN: This is an 79-year-old female with new diagnosis of brain tumor, pending transfer to [facility]. Mild anemia, normocytic. No evidence of any iron deficiency at this time. Stool OB negative x1. I had a long discussion with the family, they want to hold off on any GI procedures at this time until brain tumor issues has been addressed. further family's decision, we are going to hold off on doing endoscopy and colonoscopy. For now, we will monitor hemoglobin and hematocrit, transfuse as needed. I want to thank, Dr. Valencia, for this kind referral. Phi Douglass M.D. DR: Flores JOB#: [id number] CC: Pipo Valencia M.D.; Fax#: [phone]
--- NOTE | 2019-12-08 12:56 | Internal Med Progress Note ---
Subjective Date of Service: Dec 08, 2019 Physician Name Heriberto Ashraf Attending Physician Pipo Valencia MD Current Medications Medications (Trade) Dose Ordered Sig/Dain Route PRN Reason Start Time Stop Time Status Last Admin Dose Admin Barium Sulfate (Readi-Cat 2) 450 ml NOW PRN ORAL Radiology Procedure 12/07/19 06:45 12/09/19 06:44 Ceftriaxone Sodium 1 gm/ Dextrose 55 ml @ 110 mls/hr Q24H IVPB 12/07/19 12:00 12/14/19 11:59 12/08/19 11:41 Dexamethasone Sodium Phosphate (Decadron 4mg/ml vial) 4 mg Q6HR IVP 12/08/19 12:00 12/18/19 11:59 12/08/19 11:40 Dextrose (Dextrose 50%) 25 ml Q30M PRN IV Hypoglycemia 12/06/19 12:30 03/05/20 12:29 Dextrose (Dextrose 50%) 50 ml Q30M PRN IV Hypoglycemia 12/06/19 12:30 03/05/20 12:29 Dextrose/ Electrolytes 1,000 ml @ 75 mls/hr [id number] IV 12/06/19 14:00 01/05/20 13:59 12/08/19 11:40 Gadobutrol (Gadavist) 7.5 mmol NOW PRN IV Radiology Procedure 12/06/19 11:45 12/10/19 11:44 Iohexol (OMNIPAQUE-300 100ml) 100 ml NOW PRN INJ Radiology Procedure 12/07/19 06:45 12/09/19 06:44 Iohexol (OMNIPAQUE-300 100ml) 100 ml ONCE INJ 12/07/19 06:45 01/06/20 08:45 Pantoprazole (Protonix) 40 mg EVERY 12 HOURS ORAL 12/08/19 10:00 01/07/20 09:59 12/08/19 09:54 Allergies: Coded Allergies: No Known Allergies (Unverified , 12/06/19) ROS Limited/Unobtainable: No Constitutional: Reports: no symptoms HEENT: Reports: no symptoms Cardiovascular: Reports: no symptoms Respiratory: Reports: no symptoms Gastrointestinal/Abdominal: Reports: no symptoms Genitourinary: Reports: no symptoms Neurologic/Psychiatric: Reports: no symptoms Subjective 79 YO F admitted with vertigo, weakness and frequent falls. Now right brain tumor. Cover for Int Luis-Dr Valencia Objective Last Vital Signs Date Time Temp Pulse Resp B/P (MAP) Pulse Ox O2 Delivery O2 Flow Rate FiO2 12/08/19 12:00 98.3 71 19 125/57 (79) 97 12/08/19 08:09 Room Air 12/06/19 18:48 98 Laboratory Tests Test 12/08/19 05:30 White Blood Count 8.6 K/UL (4.8-10.8) Red Blood Count 3.62 M/UL (4.20-5.40) L Hemoglobin 11.7 G/DL (12.0-16.0) L Hematocrit 33.2 % (37.0-47.0) L Mean Corpuscular Volume 92 FL (80-99) Mean Corpuscular Hemoglobin 32.3 PG (27.0-31.0) H Mean Corpuscular Hemoglobin Concent 35.2 G/DL (32.0-36.0) Red Cell Distribution Width 11.6 % (11.6-14.8) Platelet Count 262 K/UL (150-450) Mean Platelet Volume 6.0 FL (6.5-10.1) L Neutrophils (%) (Auto) 57.7 % (45.0-75.0) Lymphocytes (%) (Auto) 31.4 % (20.0-45.0) Monocytes (%) (Auto) 6.5 % (1.0-10.0) Eosinophils (%) (Auto) 3.1 % (0.0-3.0) H Basophils (%) (Auto) 1.3 % (0.0-2.0) Erythrocyte Sedimentation Rate 35 MM/HR (0-30) H Reticulocyte Count 1.6 % (0.5-2.0) Sodium Level 142 MMOL/L (136-145) Potassium Level 3.5 MMOL/L (3.5-5.1) Chloride Level 108 MMOL/L (98-107) H Carbon Dioxide Level 26 MMOL/L (21-32) Anion Gap 8 mmol/L (5-15) Blood Urea Nitrogen 15 mg/dL (7-18) Creatinine 1.2 MG/DL (0.55-1.30) Estimat Glomerular Filtration Rate 43.3 mL/min (>60) Glucose Level 98 MG/DL (74-106) Calcium Level 8.2 MG/DL (8.5-10.1) L Phosphorus Level 3.1 MG/DL (2.5-4.9) Magnesium Level 1.8 MG/DL (1.8-2.4) Total Bilirubin 0.3 MG/DL (0.2-1.0) Aspartate Amino Transf (AST/SGOT) 27 U/L (15-37) Alanine Aminotransferase (ALT/SGPT) 21 U/L (12-78) Alkaline Phosphatase 74 U/L (46-116) Lactate Dehydrogenase 194 U/L (81-234) Total Protein 5.4 G/DL (6.4-8.2) L Albumin 2.8 G/DL (3.4-5.0) L Globulin 2.6 g/dL Albumin/Globulin Ratio 1.1 (1.0-2.7) Intake and Output 12/07/19 12/08/19 19:00 07:00 Intake Total 360 ml 1065 ml Output Total 750 ml 300 ml Balance -390 ml 765 ml Intake Oral 360 ml 240 ml IV Total 825 ml Output Urine Total 750 ml 300 ml # Voids 3 # Bowel Movements 1 Objective PHYSICAL EXAMINATION: GENERAL: The patient is a well-developed and well-nourished female, in no apparent distress. HEENT: Eyes, pupils are equal and responsive to light and accommodation. Extraocular movements are intact. NECK: Supple without lymphadenopathy. CHEST: Lungs are clear to auscultation bilaterally without wheezes or rales. CARDIOVASCULAR: Regular rate, S1, S2 normal without murmurs, rubs, or gallops. ABDOMEN: Soft, nontender, and nondistended. Positive bowel sounds. No evidence of hepatosplenomegaly. Currently, no rebound or guarding noted. EXTREMITIES: Negative for clubbing, cyanosis, or edema. RECTAL/GENITAL: Not performed. NEUROLOGICAL: Motor strength is 3/5 on the left upper and lower extremity, otherwise 5/5 throughout. Deep tendon reflexes are 2+ plantar . Assessment/Plan Assessment/Plan ASSESSMENT: This is an 79-year-old female with: 1. Left-sided weakness, left hemiparesis. 2. Frequent falls. 3. Iron deficiency anemia. 4. Hypercholesterolemia. 5. Vitamin D deficiency. 6. MRI brain = right parietal brain mass TREATMENT: 1. Left-sided weakness/vertigo/multiple falls. continue Physical therapy 2. Right parietal mass-needs neurosurgery consult. Transfer to [facility] for higher level of care. 3. Edema of the right parietal lobe is due to brain mass. Continue decadron. 4. Hypercholesterolemia. Continue atorvastatin as above. 5. Iron deficiency anemia. The patient is currently not anemic. 6. Vitamin D deficiency. Heriberto Ashraf MD Dec 08, 2019 12:56
--- NOTE | 2019-12-08 14:18 | NUR ---
PT NOTE Attempted to see patient for PT treatment. Patient declining to participate with PT at this time due to c/o fatigue, feeling sleepy. Ricardo gray RN notified, will follow up tomorrow.
--- NOTE | 2019-12-08 15:58 | NUR ---
TRANSFER UPDATE FAXED COVID RESULTS TO [facility] ALSO CALLED AND SPOKE WITH [employer] AND ASKED HIM TO LOOK OUT FOR IT [facility] T: [phone] F: [phone]
[2019-12-08 16:00] VITALS: BP 131/63
[2019-12-08] MEDS ORDERED: Tubing IV Secondary IV ONE (16:09)
--- NOTE | 2019-12-08 16:19 | NUR ---
NURSE HAND-OFF: Important Events on Shift:N/A Patient Status: STABLE Pending Orders: TRANSFER ORDER FOR HIGHER LEVEL OF CARE TO [facility] Pending Results/Labs:N/A Pending MD notification:N/A Latest Vital Signs: Temperature 97.1 , Pulse 86 , B/P 131 /63 , Respiratory Rate 19 , O2 SAT 99 , Room Air, O2 Flow Rate . Vital Sign Comment: STABLE Latest Ellis Fall Score: 55 Fall Risk: High Risk Safety Measures: Call light Within Reach, Bed Alarm Zone 2, Side Rails Side Rails x2, Bed position Low and Locked. Fall Precautions: Yellow Socks Yellow Gown Door Sign Patient Fall Education Report given to CATHY GAN RN.
--- NOTE | 2019-12-08 19:30 | NUR ---
Received report from am nurse and rounds made. Received pt lying in bed, AOx4, denies any pain at this time. IV fluid infusing patent and intact. Bed in lowest positioned and locked. Side rails up x 2. NAD noted. Will continue to monitor.
--- NOTE | 2019-12-08 19:39 | NUR ---
NURSE HAND-OFF: Important Events on Shift:[NA] Patient Status: [stable] Diet: [soft diet] Pending Orders: [] Pending Results/Labs:[] Pending MD notification:[] Latest Vital Signs: Temperature 97.1 , Pulse 86 , B/P 131 /63 , Respiratory Rate 19 , O2 SAT 99 , Room Air, O2 Flow Rate . Vital Sign Comment: [stable] Latest Ellis Fall Score: 55 Fall Risk: High Risk Safety Measures: Call light Within Reach, Bed Alarm Zone 2, Side Rails Side Rails x2, Bed position Low and Locked. Fall Precautions: Yellow Socks Yellow Gown Door Sign Patient Fall Education Report given to [ISAIAH Huddleston].
[2019-12-08 20:00] VITALS: BP 131/61
--- NOTE | 2019-12-08 20:49 | NUR ---
Patient anxious keeps asking for her caregiver Stevie, getting out of bed without calling. Re-oriented pt to place and time. Pt forgetful. Safely back in bed. Ativan given for anxiety. Will continue to monitor. Addendum: 12/09/19 at 0447 by NACHO JONES RN wrong patient
[2019-12-09 04:00] VITALS: BP 142/68
[2019-12-09] MEDS: Omnipaque-300 100ml vial INJ SCH (06:45)
--- NOTE | 2019-12-09 07:23 | NUR ---
HAND-OFF: Report given to: ISAIAH Garzon
[2019-12-09 07:24] LABS: HEMATOCRIT 33.4 % (37.0-47.0); HEMOGLOBIN 11.9 G/DL (12.0-16.0); MEAN CORPUSCULAR VOLUME 91 FL (80-99); PLATELET COUNT 257 K/UL (150-450); RED BLOOD COUNT 3.68 M/UL (4.20-5.40); RED CELL DISTRIBUTION WIDTH 11.5 % (11.6-14.8); WHITE BLOOD COUNT 9.7 K/UL (4.8-10.8)
--- NOTE | 2019-12-09 07:27 | NUR ---
NURSE NOTES: Report received from David RN, rounds made. Patient resting in semi-fowlers position in bed. AOx3, calm. No distress on RA. [place] speaking as primary). Respirations even/unlabored. Denies SOB, pain, NV,dizziness. Neuro checks done, no left side weakness noted with hand grasps/pedal pushes, 5/5, no NT, skin warm, pulses palpable. Voids in BSC, y/cl, transfers slow/fair with one assist. Tolerating soft diet, no difficulty chewing or swallowing. Call light in reach, bed in lowest position, will continue to monitor.
[2019-12-09 07:38] LABS: CALCIUM 8.5 MG/DL (8.5-10.1); CREATININE 1.2 MG/DL (0.55-1.30); POTASSIUM 3.4 MMOL/L (3.5-5.1)
[2019-12-09 08:00] VITALS: BP 142/67
--- NOTE | 2019-12-09 09:07 | NUR ---
NURSE NOTES: Dr. Womack notified of K3.4, order received for KCL 40 meq PO x1, will administer as ordered.
[2019-12-09] MEDS: cefTRIAXone 1 GM in D5W 55 ML IVPB SCH (11:46)
[2019-12-09 11:49] VITALS: BP 128/54
--- NOTE | 2019-12-09 11:52 | NUR ---
NURSE NOTES: Patient's daughter, Rosina, had questions about hospice and transfer plans, provided Dr. Womack, Dr. Ashraf and Dr. Valencia office numbers to speak with an MD directly. Dr. Womack notified that patient's daughter has questions regarding hospice and transfer plans, daughter's cell phone number provided.
--- NOTE | 2019-12-09 11:59 | Pulmonology Progress Note ---
Subjective ROS Limited/Unobtainable: No Constitutional: Reports: no symptoms HEENT: Repors: no symptoms Allergies: Coded Allergies: No Known Allergies (Unverified , 12/06/19) Objective Last 24 Hour Vital Signs Date Time Temp Pulse Resp B/P (MAP) Pulse Ox O2 Delivery O2 Flow Rate FiO2 12/09/19 11:49 98.3 72 16 128/54 (78) 95 12/09/19 08:00 97.8 75 18 142/67 (92) 96 12/09/19 04:00 98.4 74 18 142/68 (92) 95 12/08/19 21:00 Room Air 12/08/19 20:00 99.2 68 16 131/61 (84) 94 12/08/19 16:00 97.1 86 19 131/63 (85) 99 12/08/19 12:00 98.3 71 19 125/57 (79) 97 Intake and Output 12/08/19 12/09/19 19:00 07:00 Intake Total 1095 ml 945 ml Output Total 450 ml Balance 1095 ml 495 ml Intake Oral 720 ml 120 ml IV Total 375 ml 825 ml Output Urine Total 450 ml # Voids 9 General Appearance: WD/WN HEENT: normocephalic, atraumatic Respiratory: chest wall non-tender, lungs clear, normal breath sounds Breasts: no masses Cardiovascular: normal peripheral pulses, normal rate, regular rhythm Abdomen: normal bowel sounds, soft, non tender, no organomegaly Genitourinary: normal external genitalia 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 Lymphatic: no neck adenopathy Microbiology Date/Time Source Procedure Growth Status 12/08/19 13:35 Nasopharynx SARS-CoV-2 RdRp Gene Assay - Final Complete Laboratory Tests 12/09/19 05:30: White Blood Count 9.7, Red Blood Count 3.68L, Hemoglobin 11.9L, Hematocrit 33.4L , Mean Corpuscular Volume 91, Mean Corpuscular Hemoglobin 32.4H, Mean Corpuscular Hemoglobin Concent 35.7, Red Cell Distribution Width 11.5L, Platelet Count 257, Mean Platelet Volume 5.7L, Neutrophils (%) (Auto) , Lymphocytes (%) (Auto) , Monocytes (%) (Auto) , Eosinophils (%) (Auto) , Basophils (%) (Auto) , Differential Total Cells Counted 100, Neutrophils % (Manual) 83H, Lymphocytes % (Manual) 15L, Monocytes % (Manual) 2, Eosinophils % (Manual) 0, Basophils % (Manual) 0, Band Neutrophils 0, Platelet Estimate Adequate, Platelet Morphology Normal, Red Blood Cell Morphology Normal, Sodium Level 140, Potassium Level 3.4L , Chloride Level 106, Carbon Dioxide Level 23, Anion Gap 11, Blood Urea Nitrogen 18, Creatinine 1.2, Estimat Glomerular Filtration Rate 43.3, Glucose Level 167H, Calcium Level 8.5 Current Medications Medications (Trade) Dose Ordered Sig/Dani Route PRN Reason Start Time Stop Time Status Last Admin Dose Admin Ceftriaxone Sodium 1 gm/ Dextrose 55 ml @ 110 mls/hr Q24H IVPB 12/07/19 12:00 12/14/19 11:59 12/09/19 11:46 Dexamethasone Sodium Phosphate (Decadron 4mg/ml vial) 4 mg Q6HR IVP 12/08/19 12:00 12/18/19 11:59 12/09/19 11:46 Dextrose (Dextrose 50%) 25 ml Q30M PRN IV Hypoglycemia 12/06/19 12:30 03/05/20 12:29 Dextrose (Dextrose 50%) 50 ml Q30M PRN IV Hypoglycemia 12/06/19 12:30 03/05/20 12:29 Dextrose/ Electrolytes 1,000 ml @ 75 mls/hr [id number] IV 12/06/19 14:00 01/05/20 13:59 12/08/19 23:15 Gadobutrol (Gadavist) 7.5 mmol NOW PRN IV Radiology Procedure 12/06/19 11:45 12/10/19 11:44 Iohexol (OMNIPAQUE-300 100ml) 100 ml ONCE INJ 12/07/19 06:45 01/06/20 08:45 Pantoprazole (Protonix) 40 mg EVERY 12 HOURS ORAL 12/08/19 10:00 01/07/20 09:59 12/09/19 08:44 Assessment/Plan Problems: (1) Syncope (2) Failure to thrive (3) Brain mass (4) Left hemiparesis Assessment/Plan feeling better, less dizzy. awaiting neuro consult on Decadron for brain edema echo reviewed: EF is 60% tumor work up in process, CT chest and abdomen reviewed, no primary tumor located pt/ot monitor BP f/u h/h prbc prn scd for dvt prophylaxis Jelly Womack MD Dec 09, 2019 11:59
--- NOTE | 2019-12-09 12:23 | General Progress Note ---
Subjective ROS Limited/Unobtainable: Yes Allergies: Coded Allergies: No Known Allergies (Unverified , 12/06/19) Objective Last 24 Hour Vital Signs Date Time Temp Pulse Resp B/P (MAP) Pulse Ox O2 Delivery O2 Flow Rate FiO2 12/09/19 11:49 98.3 72 16 128/54 (78) 95 12/09/19 09:00 Room Air 12/09/19 08:00 97.8 75 18 142/67 (92) 96 12/09/19 04:00 98.4 74 18 142/68 (92) 95 12/08/19 21:00 Room Air 12/08/19 20:00 99.2 68 16 131/61 (84) 94 12/08/19 16:00 97.1 86 19 131/63 (85) 99 Intake and Output 12/08/19 12/09/19 19:00 07:00 Intake Total 1095 ml 945 ml Output Total 450 ml Balance 1095 ml 495 ml Intake Oral 720 ml 120 ml IV Total 375 ml 825 ml Output Urine Total 450 ml # Voids 9 Laboratory Tests 12/09/19 05:30: White Blood Count 9.7, Red Blood Count 3.68L, Hemoglobin 11.9L, Hematocrit 33.4L , Mean Corpuscular Volume 91, Mean Corpuscular Hemoglobin 32.4H, Mean Corpuscular Hemoglobin Concent 35.7, Red Cell Distribution Width 11.5L, Platelet Count 257, Mean Platelet Volume 5.7L, Neutrophils (%) (Auto) , Lymphocytes (%) (Auto) , Monocytes (%) (Auto) , Eosinophils (%) (Auto) , Basophils (%) (Auto) , Differential Total Cells Counted 100, Neutrophils % (Manual) 83H, Lymphocytes % (Manual) 15L, Monocytes % (Manual) 2, Eosinophils % (Manual) 0, Basophils % (Manual) 0, Band Neutrophils 0, Platelet Estimate Adequate, Platelet Morphology Normal, Red Blood Cell Morphology Normal, Sodium Level 140, Potassium Level 3.4L , Chloride Level 106, Carbon Dioxide Level 23, Anion Gap 11, Blood Urea Nitrogen 18, Creatinine 1.2, Estimat Glomerular Filtration Rate 43.3, Glucose Level 167H, Calcium Level 8.5 Height (Feet): 5 Height (Inches): 1.00 Weight (Pounds): 150 General Appearance: no apparent distress EENT: normal ENT inspection Neck: normal alignment Cardiovascular: normal rate Respiratory/Chest: decreased breath sounds Abdomen: normal bowel sounds, non tender, soft Extremities: non-tender Assessment/Plan Problem List: (1) Anemia ICD Codes: D64.9 - Anemia, unspecified SNOMED: 191137675 (2) Brain mass ICD Codes: G93.89 - Other specified disorders of brain SNOMED: 690181043 (3) Left hemiparesis ICD Codes: G81.94 - Hemiplegia, unspecified affecting left nondominant side SNOMED: 272968264 Assessment/Plan: stable H&H neg stool ob hold GI procedures per family and patient request cbc in am Pih Douglass MD Dec 09, 2019 12:23
--- NOTE | 2019-12-09 12:26 | Hematology/Onc Progress Note ---
Assessment/Plan Assessment/Plan Assessment and recs # Brain mass with midline shift - Enhancing mass in the high right parietal lobe near the vertex with peripheral enhancement and central enhancement and surrounding edema. Tumor versus abscess, favor tumor. Unusual pattern of enhancement in the right parietal lobe, superomedial temporal lobe, and basal ganglia region, also extending into the posterior right frontal lobe, across the posterior corpus callosum and into the left parietal deep white matter. --> she is romanian speaking and does recound has a history of skin cancer, may be melanoma v other malignancy --> obtain ct c/a/p-->neg for mass --> consider neurosurgery eal, may need transfer to high level of care --> tumor markers ordered, cea 1.3 --> consider endscopy as needed per gi # Anemia due to iron deficiency --> continue on po iron --> hgb currently stable --> hgb 11.9 # Brain edema --> steriods as per neuro eval --> may need resection/biopsy # Unilateral weakness --> likely due to above # Syncope # Fall # Melena # Dvt ppx scds Appreciate consultation and dw RN Subjective Constitutional: Denies: no symptoms, chills, fever, malaise, weakness, other HEENT: Denies: no symptoms, eye pain, blurred vision, tearing, double vision, ear pain, ear discharge, nose pain, nose congestion, throat pain, throat swelling, mouth pain, mouth swelling, other Cardiovascular: Denies: no symptoms, chest pain, edema, irregular heart rate, lightheadedness, palpitations, syncope, other Respiratory: Denies: no symptoms, cough, shortness of breath, SOB with excertion, SOB at rest, sputum, wheezing, other Gastrointestinal/Abdominal: Denies: no symptoms, abdomen distended, abdominal pain, black stools, tarry stools, blood in stool, constipated, diarrhea, difficulty swallowing, nausea, poor appetite, poor fluid intake, rectal bleeding, vomiting, other Genitourinary: Denies: no symptoms, burning, discharge, frequency, flank pain, hematuria, incontinence, pain, urgency, other Neurologic/Psychiatric: Denies: no symptoms, anxiety, depressed, emotional problems, headache, numbness, paresthesia, pre-existing deficit, seizure, tingling, tremors, weakness, other Endocrine: Denies: no symptoms, excessive sweating, flushing, intolerance to cold, intolerance to heat, increased hunger, increased thirst, increased urine, unexplained weight gain, unexplained weight loss, other Allergies: Coded Allergies: No Known Allergies (Unverified , 12/06/19) Subjective 12/07 has been started on dex, no bleeding, labs noted, hgb 11.7 12/08 meds reviewed, no fc, hgb 11.9, no hemolysis Objective Objective Current Medications Medications (Trade) Dose Ordered Sig/Dani Route PRN Reason Start Time Stop Time Status Last Admin Dose Admin Ceftriaxone Sodium 1 gm/ Dextrose 55 ml @ 110 mls/hr Q24H IVPB 12/07/19 12:00 12/14/19 11:59 12/09/19 11:46 Dexamethasone Sodium Phosphate (Decadron 4mg/ml vial) 4 mg Q6HR IVP 12/08/19 12:00 12/18/19 11:59 12/09/19 11:46 Dextrose (Dextrose 50%) 25 ml Q30M PRN IV Hypoglycemia 12/06/19 12:30 03/05/20 12:29 Dextrose (Dextrose 50%) 50 ml Q30M PRN IV Hypoglycemia 12/06/19 12:30 03/05/20 12:29 Dextrose/ Electrolytes 1,000 ml @ 75 mls/hr [id number] IV 12/06/19 14:00 01/05/20 13:59 12/08/19 23:15 Gadobutrol (Gadavist) 7.5 mmol NOW PRN IV Radiology Procedure 12/06/19 11:45 12/10/19 11:44 Iohexol (OMNIPAQUE-300 100ml) 100 ml ONCE INJ 12/07/19 06:45 01/06/20 08:45 Pantoprazole (Protonix) 40 mg EVERY 12 HOURS ORAL 12/08/19 10:00 01/07/20 09:59 12/09/19 08:44 Last 24 Hour Vital Signs Date Time Temp Pulse Resp B/P (MAP) Pulse Ox O2 Delivery O2 Flow Rate FiO2 12/09/19 11:49 98.3 72 16 128/54 (78) 95 12/09/19 09:00 Room Air 12/09/19 08:00 97.8 75 18 142/67 (92) 96 12/09/19 04:00 98.4 74 18 142/68 (92) 95 12/08/19 21:00 Room Air 12/08/19 20:00 99.2 68 16 131/61 (84) 94 12/08/19 16:00 97.1 86 19 131/63 (85) 99 12/08/19 12:00 98.3 71 19 125/57 (79) 97 12/08/19 08:24 98.2 70 18 122/46 (71) 96 12/08/19 08:09 Room Air 12/08/19 07:46 72 12/08/19 04:00 98.0 67 18 125/62 (83) 98 12/08/19 04:00 60 12/08/19 00:00 56 12/08/19 00:00 98.1 60 17 118/41 (66) 95 12/07/19 21:00 Room Air 12/07/19 20:00 64 12/07/19 20:00 97.9 62 16 114/42 (66) 95 12/07/19 20:00 75 78 88 12/07/19 16:00 97.7 75 18 117/59 (78) 100 12/07/19 16:00 75 Intake and Output 12/08/19 12/09/19 19:00 07:00 Intake Total 1095 ml 945 ml Output Total 450 ml Balance 1095 ml 495 ml Intake Oral 720 ml 120 ml IV Total 375 ml 825 ml Output Urine Total 450 ml # Voids 9 Labs Test 12/07/19 01:00 12/07/19 05:32 12/08/19 05:30 12/09/19 05:30 Stool Occult Blood Negative (NEGATIVE) White Blood Count 11.8 K/UL (4.8-10.8) 8.6 K/UL (4.8-10.8) 9.7 K/UL (4.8-10.8) Red Blood Count 3.56 M/UL (4.20-5.40) 3.62 M/UL (4.20-5.40) 3.68 M/UL (4.20-5.40) Hemoglobin 11.4 G/DL (12.0-16.0) 11.7 G/DL (12.0-16.0) 11.9 G/DL (12.0-16.0) Hematocrit 32.8 % (34.0-46.6) 33.2 % (37.0-47.0) 33.4 % (37.0-47.0) Mean Corpuscular Volume 91 FL (80-99) 92 FL (80-99) 91 FL (80-99) Mean Corpuscular Hemoglobin 32.0 PG (27.0-31.0) 32.3 PG (27.0-31.0) 32.4 PG (27.0-31.0) Mean Corpuscular Hemoglobin Concent 35.1 G/DL (32.0-36.0) 35.2 G/DL (32.0-36.0) 35.7 G/DL (32.0-36.0) Red Cell Distribution Width 11.5 % (11.6-14.8) 11.6 % (11.6-14.8) 11.5 % (11.6-14.8) Platelet Count 262 K/UL (150-450) 262 K/UL (150-450) 257 K/UL (150-450) Mean Platelet Volume 6.2 FL (6.5-10.1) 6.0 FL (6.5-10.1) 5.7 FL (6.5-10.1) Neutrophils (%) (Auto) % (45.0-75.0) 57.7 % (45.0-75.0) % (45.0-75.0) Lymphocytes (%) (Auto) % (20.0-45.0) 31.4 % (20.0-45.0) % (20.0-45.0) Monocytes (%) (Auto) % (1.0-10.0) 6.5 % (1.0-10.0) % (1.0-10.0) Eosinophils (%) (Auto) % (0.0-3.0) 3.1 % (0.0-3.0) % (0.0-3.0) Basophils (%) (Auto) % (0.0-2.0) 1.3 % (0.0-2.0) % (0.0-2.0) Differential Total Cells Counted 100 100 Neutrophils % (Manual) 90 % (45-75) 83 % (45-75) Lymphocytes % (Manual) 8 % (20-45) 15 % (20-45) Monocytes % (Manual) 2 % (1-10) 2 % (1-10) Eosinophils % (Manual) 0 % (0-3) 0 % (0-3) Basophils % (Manual) 0 % (0-2) 0 % (0-2) Band Neutrophils 0 % (0-8) 0 % (0-8) Platelet Estimate Adequate Adequate Platelet Morphology Normal Normal Red Blood Cell Morphology Normal Normal Sodium Level 141 MMOL/L (136-145) 142 MMOL/L (136-145) 140 MMOL/L (136-145) Potassium Level 3.5 MMOL/L (3.5-5.1) 3.5 MMOL/L (3.5-5.1) 3.4 MMOL/L (3.5-5.1) Chloride Level 107 MMOL/L (98-107) 108 MMOL/L (98-107) 106 MMOL/L (98-107) Carbon Dioxide Level 25 MMOL/L (21-32) 26 MMOL/L (21-32) 23 MMOL/L (21-32) Anion Gap 9 mmol/L (5-15) 8 mmol/L (5-15) 11 mmol/L (5-15) Blood Urea Nitrogen 17 mg/dL (7-18) 15 mg/dL (7-18) 18 mg/dL (7-18) Creatinine 1.1 MG/DL (0.55-1.30) 1.2 MG/DL (0.55-1.30) 1.2 MG/DL (0.55-1.30) Estimat Glomerular Filtration Rate 47.8 mL/min (>60) 43.3 mL/min (>60) 43.3 mL/min (>60) Glucose Level 150 MG/DL (74-106) 98 MG/DL (74-106) 167 MG/DL (74-106) Hemoglobin A1c 6.0 % (4.3-6.0) Calcium Level 8.7 MG/DL (8.5-10.1) 8.2 MG/DL (8.5-10.1) 8.5 MG/DL (8.5-10.1) Magnesium Level 2.0 MG/DL (1.8-2.4) 1.8 MG/DL (1.8-2.4) Iron Level 79 ug/dL (50-175) Total Iron Binding Capacity 245 ug/dL (250-450) Percent Iron Saturation 32 % (15-50) Unsaturated Iron Binding 166 ug/dL (112-346) Ferritin 242 NG/ML (8-388) Troponin I 0.000 ng/mL (0.000-0.056) Carcinoembryonic Antigen 1.3 ng/mL (0.0-4.7) Vitamin B12 Level 786 PG/ML (193-986) RBC Folate Hemolysate 419.0 ng/mL (Not Estab.) Red Blood Cell Folate 1277 ng/mL (>498) Thyroid Stimulating Hormone (TSH) 1.177 uiU/mL (0.358-3.740) Free Thyroxine 0.88 NG/DL (0.76-1.46) Erythrocyte Sedimentation Rate 35 MM/HR (0-30) Reticulocyte Count 1.6 % (0.5-2.0) Phosphorus Level 3.1 MG/DL (2.5-4.9) Total Bilirubin 0.3 MG/DL (0.2-1.0) Aspartate Amino Transf (AST/SGOT) 27 U/L (15-37) Alanine Aminotransferase (ALT/SGPT) 21 U/L (12-78) Alkaline Phosphatase 74 U/L (46-116) Lactate Dehydrogenase 194 U/L (81-234) Total Protein 5.4 G/DL (6.4-8.2) Albumin 2.8 G/DL (3.4-5.0) Globulin 2.6 g/dL Albumin/Globulin Ratio 1.1 (1.0-2.7) Micro Microbiology Date/Time Source Procedure Growth Status 12/08/19 13:35 Nasopharynx SARS-CoV-2 RdRp Gene Assay - Final Complete Height (Feet): 5 Height (Inches): 1.00 Weight (Pounds): 150 Objective Vital Signs: reviewed General Appearance: GCS 15, non-toxic Heent: hearing grossly normal, normal pharynx, no angioedema, normal voice Neck: full range of motion, supple/symm/no masses Respiratory: chest non-tender, lungs clear, normal breath sounds, speaking full sentences Cardiovascular: regular rate, rhythm, no edema Gastrointestinal: normal bowel sounds, non tender, soft Rectal: deferred Neurologic: alert, motor strength/tone normal Lymphatic: no adenopathy Seamus Swartz MD Dec 09, 2019 12:26
[2019-12-09] MEDS: D5 1/2NS w/KCL 10meq 1,000 ML IV SCH (14:48)
--- NOTE | 2019-12-09 15:08 | NUR ---
CASE MANAGEMENT: NOTE 1030- CM CONFIRMED WITH [facility]. CLINICALS AND COVID RESULTS RECEIVED. PT HAS BEEN ACCEPTED BED ASSIGNMENT PENDING 1509- F/U CALL PLACED TO JUNAID AT [facility]. BED ASSIGNMENT IS STILL PENDING. IF A BED OPENS UP SHE WILL CALL THE FLOOR. ROOM NUMBER AND NUMBER TO NURSES STATION CONFIRMED.
--- NOTE | 2019-12-09 15:10 | NUR ---
CASE MANAGEMENT:REVIEW 12/09/19 SI: BRAIN TUMOR. ATAXIA VS: T 98.3 HR 72 RR 16 B/P 128/54 SATS 95% ON RA LABS: K 3.4 GLU 167 IS: IV ROCEPHIN Q24 IVF@75 ML/HR DECADRON IV Q6H : MED/SURG STATUS DCP: FROM HOME PLAN: TRANSFER TO [facility] FOR HIGHER LEVEL OF CARE- NEUROSURGICAL CONSULT
[2019-12-09 16:00] VITALS: BP 154/99
--- NOTE | 2019-12-09 16:50 | Internal Med Progress Note ---
Subjective Physician Name Pipo Valencia Attending Physician Pipo Valencia MD Current Medications Medications (Trade) Dose Ordered Sig/Dani Route PRN Reason Start Time Stop Time Status Last Admin Dose Admin Ceftriaxone Sodium 1 gm/ Dextrose 55 ml @ 110 mls/hr Q24H IVPB 12/07/19 12:00 12/14/19 11:59 12/09/19 11:46 Dexamethasone Sodium Phosphate (Decadron 4mg/ml vial) 4 mg Q6HR IVP 12/08/19 12:00 12/18/19 11:59 12/09/19 11:46 Dextrose (Dextrose 50%) 25 ml Q30M PRN IV Hypoglycemia 12/06/19 12:30 03/05/20 12:29 Dextrose (Dextrose 50%) 50 ml Q30M PRN IV Hypoglycemia 12/06/19 12:30 03/05/20 12:29 Dextrose/ Electrolytes 1,000 ml @ 75 mls/hr [id number] IV 12/06/19 14:00 01/05/20 13:59 12/09/19 14:48 Gadobutrol (Gadavist) 7.5 mmol NOW PRN IV Radiology Procedure 12/06/19 11:45 12/10/19 11:44 Iohexol (OMNIPAQUE-300 100ml) 100 ml ONCE INJ 12/07/19 06:45 01/06/20 08:45 Pantoprazole (Protonix) 40 mg EVERY 12 HOURS ORAL 12/08/19 10:00 01/07/20 09:59 12/09/19 08:44 Allergies: Coded Allergies: No Known Allergies (Unverified , 12/06/19) Subjective awake, alert, responsive, less dizzy, still left side weakness. WBC: 9.7 Objective Last Vital Signs Date Time Temp Pulse Resp B/P (MAP) Pulse Ox O2 Delivery O2 Flow Rate FiO2 12/09/19 16:00 97.8 82 18 154/99 (117) 96 12/09/19 09:00 Room Air 12/06/19 18:48 98 Laboratory Tests Test 12/09/19 05:30 White Blood Count 9.7 K/UL (4.8-10.8) Red Blood Count 3.68 M/UL (4.20-5.40) L Hemoglobin 11.9 G/DL (12.0-16.0) L Hematocrit 33.4 % (37.0-47.0) L Mean Corpuscular Volume 91 FL (80-99) Mean Corpuscular Hemoglobin 32.4 PG (27.0-31.0) H Mean Corpuscular Hemoglobin Concent 35.7 G/DL (32.0-36.0) Red Cell Distribution Width 11.5 % (11.6-14.8) L Platelet Count 257 K/UL (150-450) Mean Platelet Volume 5.7 FL (6.5-10.1) L Neutrophils (%) (Auto) % (45.0-75.0) Lymphocytes (%) (Auto) % (20.0-45.0) Monocytes (%) (Auto) % (1.0-10.0) Eosinophils (%) (Auto) % (0.0-3.0) Basophils (%) (Auto) % (0.0-2.0) Differential Total Cells Counted 100 Neutrophils % (Manual) 83 % (45-75) H Lymphocytes % (Manual) 15 % (20-45) L Monocytes % (Manual) 2 % (1-10) Eosinophils % (Manual) 0 % (0-3) Basophils % (Manual) 0 % (0-2) Band Neutrophils 0 % (0-8) Platelet Estimate Adequate Platelet Morphology Normal Red Blood Cell Morphology Normal Sodium Level 140 MMOL/L (136-145) Potassium Level 3.4 MMOL/L (3.5-5.1) L Chloride Level 106 MMOL/L (98-107) Carbon Dioxide Level 23 MMOL/L (21-32) Anion Gap 11 mmol/L (5-15) Blood Urea Nitrogen 18 mg/dL (7-18) Creatinine 1.2 MG/DL (0.55-1.30) Estimat Glomerular Filtration Rate 43.3 mL/min (>60) Glucose Level 167 MG/DL (74-106) H Calcium Level 8.5 MG/DL (8.5-10.1) Microbiology Date/Time Source Procedure Growth Status 12/08/19 13:35 Nasopharynx SARS-CoV-2 RdRp Gene Assay - Final Complete Intake and Output 12/08/19 12/09/19 19:00 07:00 Intake Total 1095 ml 1020 ml Output Total 450 ml Balance 1095 ml 570 ml Intake Oral 720 ml 120 ml IV Total 375 ml 900 ml Output Urine Total 450 ml # Voids 9 Objective PHYSICAL EXAMINATION: GENERAL: awake, alert, responsive, well-nourished female, in no apparent distress. HEENT: Eyes, pupils are equal and responsive to light and accommodation. Extraocular movements are intact. NECK: Supple without lymphadenopathy. CHEST: Lungs are clear to auscultation bilaterally without wheezes or rales. CARDIOVASCULAR: Regular rate, S1, S2 normal without murmurs, rubs, or gallops. ABDOMEN: Soft, nontender, and nondistended. Positive bowel sounds. no rebound or guarding. EXTREMITIES: Negative for clubbing, cyanosis, or edema. RECTAL/GENITAL: Not performed. NEUROLOGICAL: CN 2-12 grossly intact, Motor strength is 3/5 on the left upper and lower extremity, otherwise 5/5 right side extremities. Assessment/Plan Assessment/Plan ASSESSMENT: This is an 79-year-old female with: 1. Left-sided weakness, left hemiparesis. 2. Frequent falls. 3. Iron deficiency anemia. 4. Hypercholesterolemia. 5. Vitamin D deficiency. 6. MRI brain = right parietal brain mass TREATMENT: 1. Left-sided weakness/vertigo/multiple falls. continue Physical therapy 2. Right parietal mass-needs neurosurgery consult. Transfer to [facility] for higher level of care. 3. Edema of the right parietal lobe is due to brain mass. On Decadron 4 MG IV Q6. 4. Hypercholesterolemia. Continue atorvastatin as above. 5. Iron deficiency anemia. . 6. Vitamin D deficiency. Code status: Full code DVT Prophylaxis: SCD, Heparin SQ Abx: Rocephin IV Discuss with daughter over the phone. Pipo Valencia MD Dec 09, 2019 16:50
[2019-12-09 17:40] VITALS: BP 132/66
--- NOTE | 2019-12-09 19:10 | NUR ---
NURSE NOTES: RECEIVED PATIENT FROM ISAIAH [facility]. PATIENT IS AWAKE, AAOX3, ON ROOM AIR, NO ACUTE DISTRESS NOTED. PIV ON RIGHT WRIST 22G INTACT AND PATENT, RUNNING D5 1/2 NS WITH 10MEQ RUNNING 75ML/HR. PATIENT IS A HIGH FALL RISK, S/P FALL AT HOME AND WEAKNESS ON LEFT SIDE. PLACED PATIENT IN ROOM 301-1, CLOSE TO NURSING STATION, FALL PRECAUTION IMPLEMENTED, YELLOW SOCKS, YELLOW ARMBAND, YELLOW GOWN AND DOOR SIGN PRESENT. COMMODE AT BEDSIDE, PATIENT ALWAYS REQUESTED FOR A PUREWICK. BED IS LOCKED AND LOW, BED ALARMS ACTIVE, SIDE RAILS UPX2 AND CALL LIGHT IS WITHIN REACH. REINFORCED TEACHING ON USE OF CALL LIGHT, PATIENT VERBALIZED UNDERSTANDING AND RETURNED DEMONSTRATION. WILL CONTINUE TO MONITOR CLOSELY. Addendum: 12/09/19 at 2203 by Maureen Cannon RN PATIENT ALSO REQUESTED FOR A PUREWICK.
--- NOTE | 2019-12-09 19:43 | NUR ---
NURSE HAND-OFF: Important Events on Shift:Discharge plans for transfer to [facility] for Neuro surgery when bed available Patient Status: stable Diet: soft Pending Orders: none Pending Results/Labs:none Pending MD notification:none Latest Vital Signs: Temperature 97.8 , Pulse 75 , B/P 132 /66 , Respiratory Rate 18 , O2 SAT 96 , Room Air, O2 Flow Rate . Vital Sign Comment: none Latest Ellis Fall Score: 70 Fall Risk: High Risk Safety Measures: Call light Within Reach, Bed Alarm Zone 2, Side Rails Side Rails x2, Bed position Low and Locked. Fall Precautions: Yellow Socks Yellow Gown Door Sign Patient Fall Education Report given to Maureen RN .
[2019-12-09 20:00] VITALS: BP 122/55
--- NOTE | 2019-12-09 21:57 | NUR ---
NURSE NOTES: PATIENT WAS SEEN BY DR. ORLANDO. NO NEW ORDERS. PATIENT IS IN STABLE CONDITION.
[2019-12-10] VITALS: BP 117/56
--- NOTE | 2019-12-10 01:44 | Cardiology Progress Note ---
Subjective DATE OF SERVICE: Dec 09, 2019 No noted seizures Still ataxic with unsteady gait and left weakness MRI findings noted Objective Last 24 Hour Vital Signs Date Time Temp Pulse Resp B/P (MAP) Pulse Ox O2 Delivery O2 Flow Rate FiO2 12/10/19 00:00 98.2 63 117/56 (76) 97 12/09/19 21:00 Room Air 12/09/19 20:00 98.1 63 122/55 (77) 12/09/19 17:40 75 132/66 (88) 12/09/19 16:00 97.8 82 18 154/99 (117) 96 12/09/19 11:49 98.3 72 16 128/54 (78) 95 12/09/19 09:00 Room Air 12/09/19 08:00 97.8 75 18 142/67 (92) 96 12/09/19 04:00 98.4 74 18 142/68 (92) 95 ROS: unchanged from my evaluation of 12/06/19 HEENT: normal ENT inspection RHYTHM: NSR LUNGS: lungs clear bilaterally CARDIAC: normal rate, regular rhythm, normal S1 and S2 ABDOMEN: normal bowel sounds, non tender, soft, no organomegaly EXTREMITIES: No edema, other - Left sided weakness Laboratory Tests Test 12/09/19 05:30 White Blood Count 9.7 K/UL (4.8-10.8) Red Blood Count 3.68 M/UL (4.20-5.40) L Hemoglobin 11.9 G/DL (12.0-16.0) L Hematocrit 33.4 % (37.0-47.0) L Mean Corpuscular Volume 91 FL (80-99) Mean Corpuscular Hemoglobin 32.4 PG (27.0-31.0) H Mean Corpuscular Hemoglobin Concent 35.7 G/DL (32.0-36.0) Red Cell Distribution Width 11.5 % (11.6-14.8) L Platelet Count 257 K/UL (150-450) Mean Platelet Volume 5.7 FL (6.5-10.1) L Neutrophils (%) (Auto) % (45.0-75.0) Lymphocytes (%) (Auto) % (20.0-45.0) Monocytes (%) (Auto) % (1.0-10.0) Eosinophils (%) (Auto) % (0.0-3.0) Basophils (%) (Auto) % (0.0-2.0) Differential Total Cells Counted 100 Neutrophils % (Manual) 83 % (45-75) H Lymphocytes % (Manual) 15 % (20-45) L Monocytes % (Manual) 2 % (1-10) Eosinophils % (Manual) 0 % (0-3) Basophils % (Manual) 0 % (0-2) Band Neutrophils 0 % (0-8) Platelet Estimate Adequate Platelet Morphology Normal Red Blood Cell Morphology Normal Sodium Level 140 MMOL/L (136-145) Potassium Level 3.4 MMOL/L (3.5-5.1) L Chloride Level 106 MMOL/L (98-107) Carbon Dioxide Level 23 MMOL/L (21-32) Anion Gap 11 mmol/L (5-15) Blood Urea Nitrogen 18 mg/dL (7-18) Creatinine 1.2 MG/DL (0.55-1.30) Estimat Glomerular Filtration Rate 43.3 mL/min (>60) Glucose Level 167 MG/DL (74-106) H Calcium Level 8.5 MG/DL (8.5-10.1) Microbiology Date/Time Source Procedure Growth Status 12/08/19 13:35 Nasopharynx SARS-CoV-2 RdRp Gene Assay - Final Complete Assessment/Plan Assessment/Plan 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
[2019-12-10 04:00] VITALS: BP 114/68
--- NOTE | 2019-12-10 06:34 | NUR ---
NURSE HAND-OFF: Important Events on Shift: PATIENT WAS SEEN BY DR. ORLANDO, STABLE, NO ACUTE EVENTS. Patient Status: STABLE Diet: SOFT Pending Orders: STILL WAITING FOR A BED AT [facility] Pending Results/Labs: N/A Pending MD notification: N/A Latest Vital Signs: Temperature 98.6 , Pulse 62 , B/P 114 /68 , Respiratory Rate 18 , O2 SAT 98 , Room Air, O2 Flow Rate . Vital Sign Comment: STABLE Latest Ellis Fall Score: 70 Fall Risk: High Risk Safety Measures: Call light Within Reach, Bed Alarm Zone 2, Side Rails Side Rails x2, Bed position Low and Locked. Fall Precautions: IMPLEMENTED Yellow Socks Yellow Gown Door Sign Patient Fall Education: GIVEN
[2019-12-10] MEDS: Omnipaque-300 100ml vial INJ SCH (06:45)
--- NOTE | 2019-12-10 07:13 | NUR ---
NURSE NOTES: Report received from Maureen RN, rounds made. Patient resting in semi-fowlers position in bed. AOx3, calm. No distress on RA. Romanian speaking as primary). Respirations even/unlabored. Denies SOB, pain, NV,dizziness. Neuro checks done, no left side weakness noted with hand grasps/pedal pushes equal/strong, 5/5, no NT, skin warm, pulses palpable. Voids in BSC, y/cl, transfers slow/fair with one assist, fall risk due to history of falls and leans to her left with positioning and transfering. Tolerating soft diet, no difficulty chewing or swallowing. IV D5 1/2 NS +10 meq KCL at 75 ml/hr to right wrist, site asymptomatic. Call light in reach, bed in lowest position, will continue to monitor.
--- NOTE | 2019-12-10 07:17 | NUR ---
HAND-OFF: Report given to ISAIAH Orozco.
[2019-12-10 08:00] VITALS: BP 137/64
--- NOTE | 2019-12-10 09:08 | Internal Med Progress Note ---
Subjective Physician Name Pipo Valencia Attending Physician Pipo Valencia MD Current Medications Medications (Trade) Dose Ordered Sig/Dani Route PRN Reason Start Time Stop Time Status Last Admin Dose Admin Ceftriaxone Sodium 1 gm/ Dextrose 55 ml @ 110 mls/hr Q24H IVPB 12/07/19 12:00 12/14/19 11:59 12/09/19 11:46 Dexamethasone Sodium Phosphate (Decadron 4mg/ml vial) 4 mg Q6HR IVP 12/08/19 12:00 12/18/19 11:59 12/10/19 06:12 Dextrose (Dextrose 50%) 25 ml Q30M PRN IV Hypoglycemia 12/06/19 12:30 03/05/20 12:29 Dextrose (Dextrose 50%) 50 ml Q30M PRN IV Hypoglycemia 12/06/19 12:30 03/05/20 12:29 Dextrose/ Electrolytes 1,000 ml @ 75 mls/hr [id number] IV 12/06/19 14:00 01/05/20 13:59 12/09/19 14:48 Gadobutrol (Gadavist) 7.5 mmol NOW PRN IV Radiology Procedure 12/06/19 11:45 12/10/19 11:44 Iohexol (OMNIPAQUE-300 100ml) 100 ml ONCE INJ 12/07/19 06:45 01/06/20 08:45 Pantoprazole (Protonix) 40 mg EVERY 12 HOURS ORAL 12/08/19 10:00 01/07/20 09:59 12/10/19 08:25 Allergies: Coded Allergies: No Known Allergies (Unverified , 12/06/19) Subjective awake, alert, responsive, less dizzy, still left side weakness. Objective Last Vital Signs Date Time Temp Pulse Resp B/P (MAP) Pulse Ox O2 Delivery O2 Flow Rate FiO2 12/10/19 08:00 97.7 63 18 137/64 (88) 98 12/09/19 21:00 Room Air 12/06/19 18:48 98 Microbiology Date/Time Source Procedure Growth Status 12/08/19 13:35 Nasopharynx SARS-CoV-2 RdRp Gene Assay - Final Complete Intake and Output 12/09/19 12/10/19 19:00 07:00 Intake Total 1550 ml 800 ml Output Total 800 ml Balance 1550 ml 0 ml Intake Oral 800 ml 50 ml IV Total 750 ml 750 ml Output Urine Total 800 ml # Voids 5 Objective PHYSICAL EXAMINATION: GENERAL: awake, alert, responsive, well-nourished female, in no apparent distress. HEENT: Eyes, pupils are equal and responsive to light and accommodation. Extraocular movements are intact. NECK: Supple without lymphadenopathy. CHEST: Lungs are clear to auscultation bilaterally without wheezes or rales. CARDIOVASCULAR: Regular rate, S1, S2 normal without murmurs, rubs, or gallops. ABDOMEN: Soft, nontender, and nondistended. Positive bowel sounds. no rebound or guarding. EXTREMITIES: Negative for clubbing, cyanosis, or edema. RECTAL/GENITAL: Not performed. NEUROLOGICAL: CN 2-12 grossly intact, Motor strength is 3/5 on the left upper and lower extremity, otherwise 5/5 right side extremities. Assessment/Plan Assessment/Plan ASSESSMENT: This is an 79-year-old female with: 1. Left-sided weakness, left hemiparesis. 2. Frequent falls. 3. Iron deficiency anemia. 4. Hypercholesterolemia. 5. Vitamin D deficiency. 6. MRI brain = right parietal brain mass TREATMENT: 1. Left-sided weakness/vertigo/multiple falls. continue Physical therapy 2. Right parietal mass-needs neurosurgery consult. 3. Edema of the right parietal lobe is due to brain mass. On Decadron 4 MG IV Q6. 4. Hypercholesterolemia. Continue atorvastatin as above. 5. Iron deficiency anemia. . 6. Vitamin D deficiency. Code status: Full code DVT Prophylaxis: SCD, Heparin SQ Abx: Rocephin IV Transfer to [facility] for higher level of care today. Pipo Valencia MD Dec 10, 2019 09:08
--- NOTE | 2019-12-10 09:53 | General Progress Note ---
Subjective ROS Limited/Unobtainable: No Allergies: Coded Allergies: No Known Allergies (Unverified , 12/06/19) Objective Last 24 Hour Vital Signs Date Time Temp Pulse Resp B/P (MAP) Pulse Ox O2 Delivery O2 Flow Rate FiO2 12/10/19 08:00 97.7 63 18 137/64 (88) 98 12/10/19 04:00 98.6 62 114/68 (83) 98 12/10/19 00:00 98.2 63 117/56 (76) 97 12/09/19 21:00 Room Air 12/09/19 20:00 98.1 63 122/55 (77) 12/09/19 17:40 75 132/66 (88) 12/09/19 16:00 97.8 82 18 154/99 (117) 96 12/09/19 11:49 98.3 72 16 128/54 (78) 95 Intake and Output 12/09/19 12/10/19 19:00 07:00 Intake Total 1550 ml 800 ml Output Total 800 ml Balance 1550 ml 0 ml Intake Oral 800 ml 50 ml IV Total 750 ml 750 ml Output Urine Total 800 ml # Voids 5 Height (Feet): 5 Height (Inches): 1.00 Weight (Pounds): 150 General Appearance: no apparent distress EENT: normal ENT inspection Neck: normal alignment Cardiovascular: normal rate Respiratory/Chest: decreased breath sounds Abdomen: normal bowel sounds, non tender, soft Extremities: non-tender Assessment/Plan Problem List: (1) Anemia ICD Codes: D64.9 - Anemia, unspecified SNOMED: 272004699 (2) Brain mass ICD Codes: G93.89 - Other specified disorders of brain SNOMED: 669743245 (3) Left hemiparesis ICD Codes: G81.94 - Hemiplegia, unspecified affecting left nondominant side SNOMED: 160679146 Assessment/Plan: stable H&H neg stool ob hold GI procedures per family and patient request cbc in Phi Sherman MD Dec 10, 2019 09:52
--- NOTE | 2019-12-10 11:04 | Pulmonology Progress Note ---
Subjective ROS Limited/Unobtainable: No Constitutional: Reports: no symptoms HEENT: Repors: no symptoms Allergies: Coded Allergies: No Known Allergies (Unverified , 12/06/19) Objective Last 24 Hour Vital Signs Date Time Temp Pulse Resp B/P (MAP) Pulse Ox O2 Delivery O2 Flow Rate FiO2 12/10/19 08:00 97.7 63 18 137/64 (88) 98 12/10/19 04:00 98.6 62 114/68 (83) 98 12/10/19 00:00 98.2 63 117/56 (76) 97 12/09/19 21:00 Room Air 12/09/19 20:00 98.1 63 122/55 (77) 12/09/19 17:40 75 132/66 (88) 12/09/19 16:00 97.8 82 18 154/99 (117) 96 12/09/19 11:49 98.3 72 16 128/54 (78) 95 Intake and Output 12/09/19 12/10/19 19:00 07:00 Intake Total 1550 ml 800 ml Output Total 800 ml Balance 1550 ml 0 ml Intake Oral 800 ml 50 ml IV Total 750 ml 750 ml Output Urine Total 800 ml # Voids 5 General Appearance: WD/WN HEENT: normocephalic, atraumatic Respiratory: chest wall non-tender, lungs clear, normal breath sounds Breasts: no masses Cardiovascular: normal peripheral pulses, normal rate, regular rhythm Abdomen: normal bowel sounds, soft, non tender, no organomegaly Genitourinary: normal external genitalia 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 normal Lymphatic: no neck adenopathy Microbiology Date/Time Source Procedure Growth Status 12/08/19 13:35 Nasopharynx SARS-CoV-2 RdRp Gene Assay - Final Complete Current Medications Medications (Trade) Dose Ordered Sig/Dani Route PRN Reason Start Time Stop Time Status Last Admin Dose Admin Ceftriaxone Sodium 1 gm/ Dextrose 55 ml @ 110 mls/hr Q24H IVPB 12/07/19 12:00 12/14/19 11:59 12/09/19 11:46 Dexamethasone Sodium Phosphate (Decadron 4mg/ml vial) 4 mg Q6HR IVP 12/08/19 12:00 12/18/19 11:59 12/10/19 06:12 Dextrose (Dextrose 50%) 25 ml Q30M PRN IV Hypoglycemia 12/06/19 12:30 03/05/20 12:29 Dextrose (Dextrose 50%) 50 ml Q30M PRN IV Hypoglycemia 12/06/19 12:30 03/05/20 12:29 Dextrose/ Electrolytes 1,000 ml @ 75 mls/hr [id number] IV 12/06/19 14:00 01/05/20 13:59 12/09/19 14:48 Gadobutrol (Gadavist) 7.5 mmol NOW PRN IV Radiology Procedure 12/06/19 11:45 12/10/19 11:44 Iohexol (OMNIPAQUE-300 100ml) 100 ml ONCE INJ 12/07/19 06:45 01/06/20 08:45 Pantoprazole (Protonix) 40 mg EVERY 12 HOURS ORAL 12/08/19 10:00 01/07/20 09:59 12/10/19 08:25 Assessment/Plan Problems: (1) Syncope (2) Brain mass (3) Failure to thrive (4) Left hemiparesis Assessment/Plan d/w daughter at the bed site who insists that she wants a neurologist to see her feeling better, less dizzy. awaiting neuro consult on Decadron for brain edema echo reviewed: EF is 60% pt/ot monitor BP f/u h/h prbc prn scd for dvt prophylaxis Jelly Womack MD Dec 10, 2019 11:04
[2019-12-10] MEDS: D5 1/2NS w/KCL 10meq 1,000 ML IV SCH ×2 (11:20→12:42)
--- NOTE | 2019-12-10 11:42 | Hematology/Onc Progress Note ---
Assessment/Plan Assessment/Plan Assessment and recs # Brain mass with midline shift - Enhancing mass in the high right parietal lobe near the vertex with peripheral enhancement and central enhancement and surrounding edema. Tumor versus abscess, favor tumor. Unusual pattern of enhancement in the right parietal lobe, superomedial temporal lobe, and basal ganglia region, also extending into the posterior right frontal lobe, across the posterior corpus callosum and into the left parietal deep white matter. --> she is greek speaking and does recound has a history of skin cancer, may be melanoma v other malignancy --> obtain ct c/a/p-->neg for mass --> consider neurosurgery eal, may need transfer to high level of care --> neuro eval as well --> tumor markers ordered, cea 1.3 --> consider endscopy as needed per gi # Anemia due to iron deficiency --> continue on po iron --> hgb currently stable --> hgb 11.9->11.9 # Brain edema --> steriods as per neuro eval --> may need resection/biopsy # Unilateral weakness --> likely due to above # Syncope # Fall # Melena # Dvt ppx scds Appreciate consultation and dw RN Subjective Constitutional: Denies: no symptoms, chills, fever, malaise, weakness, other HEENT: Denies: no symptoms, eye pain, blurred vision, tearing, double vision, ear pain, ear discharge, nose pain, nose congestion, throat pain, throat swelling, mouth pain, mouth swelling, other Cardiovascular: Denies: no symptoms, chest pain, edema, irregular heart rate, lightheadedness, palpitations, syncope, other Respiratory: Denies: no symptoms, cough, shortness of breath, SOB with excertion, SOB at rest, sputum, wheezing, other Gastrointestinal/Abdominal: Denies: no symptoms, abdomen distended, abdominal pain, black stools, tarry stools, blood in stool, constipated, diarrhea, difficulty swallowing, nausea, poor appetite, poor fluid intake, rectal bleeding, vomiting, other Genitourinary: Denies: no symptoms, burning, discharge, frequency, flank pain, hematuria, incontinence, pain, urgency, other Neurologic/Psychiatric: Denies: no symptoms, anxiety, depressed, emotional problems, headache, numbness, paresthesia, pre-existing deficit, seizure, tingling, tremors, weakness, other Endocrine: Denies: no symptoms, excessive sweating, flushing, intolerance to cold, intolerance to heat, increased hunger, increased thirst, increased urine, unexplained weight gain, unexplained weight loss, other Allergies: Coded Allergies: No Known Allergies (Unverified , 12/06/19) Subjective 12/07 has been started on dex, no bleeding, labs noted, hgb 11.7 12/08 meds reviewed, no fc, hgb 11.9, no hemolysis 12/09 no major changes, neurologist to see, Dr. Grubbs, dw Rn, on steriods Objective Objective Current Medications Medications (Trade) Dose Ordered Sig/Dani Route PRN Reason Start Time Stop Time Status Last Admin Dose Admin Ceftriaxone Sodium 1 gm/ Dextrose 55 ml @ 110 mls/hr Q24H IVPB 12/07/19 12:00 12/14/19 11:59 12/09/19 11:46 Dexamethasone Sodium Phosphate (Decadron 4mg/ml vial) 4 mg Q6HR IVP 12/08/19 12:00 12/18/19 11:59 12/10/19 06:12 Dextrose (Dextrose 50%) 25 ml Q30M PRN IV Hypoglycemia 12/06/19 12:30 03/05/20 12:29 Dextrose (Dextrose 50%) 50 ml Q30M PRN IV Hypoglycemia 12/06/19 12:30 03/05/20 12:29 Dextrose/ Electrolytes 1,000 ml @ 75 mls/hr [id number] IV 12/06/19 14:00 01/05/20 13:59 12/09/19 14:48 Gadobutrol (Gadavist) 7.5 mmol NOW PRN IV Radiology Procedure 12/06/19 11:45 12/10/19 11:44 Iohexol (OMNIPAQUE-300 100ml) 100 ml ONCE INJ 12/07/19 06:45 01/06/20 08:45 Pantoprazole (Protonix) 40 mg EVERY 12 HOURS ORAL 12/08/19 10:00 01/07/20 09:59 12/10/19 08:25 Last 24 Hour Vital Signs Date Time Temp Pulse Resp B/P (MAP) Pulse Ox O2 Delivery O2 Flow Rate FiO2 12/10/19 08:00 97.7 63 18 137/64 (88) 98 12/10/19 04:00 98.6 62 114/68 (83) 98 12/10/19 00:00 98.2 63 117/56 (76) 97 12/09/19 21:00 Room Air 12/09/19 20:00 98.1 63 122/55 (77) 12/09/19 17:40 75 132/66 (88) 12/09/19 16:00 97.8 82 18 154/99 (117) 96 12/09/19 11:49 98.3 72 16 128/54 (78) 95 12/09/19 09:00 Room Air 12/09/19 08:00 97.8 75 18 142/67 (92) 96 12/09/19 04:00 98.4 74 18 142/68 (92) 95 12/08/19 21:00 Room Air 12/08/19 20:00 99.2 68 16 131/61 (84) 94 12/08/19 16:00 97.1 86 19 131/63 (85) 99 12/08/19 12:00 98.3 71 19 125/57 (79) 97 Intake and Output 12/09/19 12/10/19 19:00 07:00 Intake Total 1550 ml 800 ml Output Total 800 ml Balance 1550 ml 0 ml Intake Oral 800 ml 50 ml IV Total 750 ml 750 ml Output Urine Total 800 ml # Voids 5 Labs Test 12/08/19 05:30 12/09/19 05:30 White Blood Count 8.6 K/UL (4.8-10.8) 9.7 K/UL (4.8-10.8) Red Blood Count 3.62 M/UL (4.20-5.40) 3.68 M/UL (4.20-5.40) Hemoglobin 11.7 G/DL (12.0-16.0) 11.9 G/DL (12.0-16.0) Hematocrit 33.2 % (37.0-47.0) 33.4 % (37.0-47.0) Mean Corpuscular Volume 92 FL (80-99) 91 FL (80-99) Mean Corpuscular Hemoglobin 32.3 PG (27.0-31.0) 32.4 PG (27.0-31.0) Mean Corpuscular Hemoglobin Concent 35.2 G/DL (32.0-36.0) 35.7 G/DL (32.0-36.0) Red Cell Distribution Width 11.6 % (11.6-14.8) 11.5 % (11.6-14.8) Platelet Count 262 K/UL (150-450) 257 K/UL (150-450) Mean Platelet Volume 6.0 FL (6.5-10.1) 5.7 FL (6.5-10.1) Neutrophils (%) (Auto) 57.7 % (45.0-75.0) % (45.0-75.0) Lymphocytes (%) (Auto) 31.4 % (20.0-45.0) % (20.0-45.0) Monocytes (%) (Auto) 6.5 % (1.0-10.0) % (1.0-10.0) Eosinophils (%) (Auto) 3.1 % (0.0-3.0) % (0.0-3.0) Basophils (%) (Auto) 1.3 % (0.0-2.0) % (0.0-2.0) Erythrocyte Sedimentation Rate 35 MM/HR (0-30) Reticulocyte Count 1.6 % (0.5-2.0) Sodium Level 142 MMOL/L (136-145) 140 MMOL/L (136-145) Potassium Level 3.5 MMOL/L (3.5-5.1) 3.4 MMOL/L (3.5-5.1) Chloride Level 108 MMOL/L (98-107) 106 MMOL/L (98-107) Carbon Dioxide Level 26 MMOL/L (21-32) 23 MMOL/L (21-32) Anion Gap 8 mmol/L (5-15) 11 mmol/L (5-15) Blood Urea Nitrogen 15 mg/dL (7-18) 18 mg/dL (7-18) Creatinine 1.2 MG/DL (0.55-1.30) 1.2 MG/DL (0.55-1.30) Estimat Glomerular Filtration Rate 43.3 mL/min (>60) 43.3 mL/min (>60) Glucose Level 98 MG/DL (74-106) 167 MG/DL (74-106) Calcium Level 8.2 MG/DL (8.5-10.1) 8.5 MG/DL (8.5-10.1) Phosphorus Level 3.1 MG/DL (2.5-4.9) Magnesium Level 1.8 MG/DL (1.8-2.4) Total Bilirubin 0.3 MG/DL (0.2-1.0) Aspartate Amino Transf (AST/SGOT) 27 U/L (15-37) Alanine Aminotransferase (ALT/SGPT) 21 U/L (12-78) Alkaline Phosphatase 74 U/L (46-116) Lactate Dehydrogenase 194 U/L (81-234) Total Protein 5.4 G/DL (6.4-8.2) Albumin 2.8 G/DL (3.4-5.0) Globulin 2.6 g/dL Albumin/Globulin Ratio 1.1 (1.0-2.7) Differential Total Cells Counted 100 Neutrophils % (Manual) 83 % (45-75) Lymphocytes % (Manual) 15 % (20-45) Monocytes % (Manual) 2 % (1-10) Eosinophils % (Manual) 0 % (0-3) Basophils % (Manual) 0 % (0-2) Band Neutrophils 0 % (0-8) Platelet Estimate Adequate Platelet Morphology Normal Red Blood Cell Morphology Normal Height (Feet): 5 Height (Inches): 1.00 Weight (Pounds): 150 Objective Vital Signs: reviewed General Appearance: GCS 15, non-toxic Heent: hearing grossly normal, normal pharynx, no angioedema, normal voice Neck: full range of motion, supple/symm/no masses Respiratory: chest non-tender, lungs clear, normal breath sounds, speaking full sentences Cardiovascular: regular rate, rhythm, no edema Gastrointestinal: normal bowel sounds, non tender, soft Rectal: deferred Neurologic: alert, motor strength/tone normal Lymphatic: no adenopathy Seamus Swartz MD Dec 10, 2019 11:42
[2019-12-10] MEDS: cefTRIAXone 1 GM in D5W 55 ML IVPB SCH (11:55)
[2019-12-10 12:00] VITALS: BP 139/59
--- NOTE | 2019-12-10 13:20 | NUR ---
DISCHARGE DISPOSITION: PLEASE READ PATIENT TO BE DISCHARGED TO [facility] ROOM 8003 T: [phone]>> CALL FOR REPORT [facility] ETA 1530 BLS SISTER TRINID[place] IS AWARE OF THE REQUEST FOR TRANSFER AND IS AGREEABLE TO TERRANCE. SISTER WILL BE PRESENT AT THE BEDSIDE FOR TRANSFER. ENTIRE CHART NEEDS TO BE COPIED AND IMAGING TO BE ON CD PRIOR TO TRANSFER Addendum: 12/10/19 at 1409 by Sujey Gomez CM CM S/W PT AT BEDSIDE REGARDING DC PLAN. PT IS AGREEABLE TO TRANSFER
--- NOTE | 2019-12-10 13:26 | Cardiology Progress Note ---
Subjective DATE OF SERVICE: Dec 10, 2019 No noted seizures Still ataxic with unsteady gait and left weakness, although improved. MRI findings noted Objective Last 24 Hour Vital Signs Date Time Temp Pulse Resp B/P (MAP) Pulse Ox O2 Delivery O2 Flow Rate FiO2 12/10/19 12:00 98.1 64 18 139/59 (85) 95 12/10/19 09:00 Room Air 12/10/19 08:00 97.7 63 18 137/64 (88) 98 12/10/19 04:00 98.6 62 114/68 (83) 98 12/10/19 00:00 98.2 63 117/56 (76) 97 12/09/19 21:00 Room Air 12/09/19 20:00 98.1 63 122/55 (77) 12/09/19 17:40 75 132/66 (88) 12/09/19 16:00 97.8 82 18 154/99 (117) 96 ROS: unchanged from my evaluation of 12/06/19 HEENT: normal ENT inspection RHYTHM: NSR LUNGS: lungs clear bilaterally CARDIAC: normal rate, regular rhythm, normal S1 and S2 ABDOMEN: normal bowel sounds, non tender, soft, no organomegaly EXTREMITIES: No edema, other - Left sided weakness Microbiology Date/Time Source Procedure Growth Status 12/08/19 13:35 Nasopharynx SARS-CoV-2 RdRp Gene Assay - Final Complete Assessment/Plan Assessment/Plan 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
--- NOTE | 2019-12-10 15:40 | NUR ---
NURSE NOTES: Spoke to Sister Rosina, aware of transfer to [facility], scheduled for today at 1530, will accompany patient during transfer. Report called to Agnes COLON at [facility] at this time (provided return call back phone number if needed).
[2019-12-10 16:00] VITALS: BP 130/56
--- NOTE | 2019-12-10 16:04 | NUR ---
NURSE NOTES: Patient transferred to [facility] via [facility] at this time. RW IV saline lock in place, clamped, site asymptomatic. Sister Rosina at bedside, she took all patient belongings with her, patient aware/agrees. Transferred at 1604, in stable condition on RA.
--- NOTE | 2019-12-12 12:05 | Discharge Summary ---
Discharge Summary Discharge Summary _ DATE OF ADMISSION: 12/06/2019 DATE OF DISCHARGE: 12/10/2019 DISCHARGED BY: Dr. Pipo Valencia CONSULTANTS: Dr. Kwaku Douglass [facility] COURSE: Patient is an 79-year-old female who presented with chief complaint of left-sided weakness and multiple falls. Patient is a [employer]. Patient is currently stationed near [place]. According to her caregiver, the patient became increasingly weak over the last 4 days. The patient herself is unable to rise from the toilet. The patient stated that she has been falling frequently. The patient feels weaker on the left than the right. She also had some vertigo. Patient presented to [place] emergency room. She has medical history of hypercholesterolemia, vitamin D deficiency and iron deficiency anemia. Upon evaluation at the ED, vital signs were stable. CBC and CMP were unremarkable. EKG normal. Troponin negative. Urinalysis did not show any evidence of UTI. Urine toxicology screen was negative. She did not have any unilateral weakness on examination but was complaining of subjective weakness to the left upper and left lower extremity. Head CT showed unilateral right sided swelling with approximately 5 mm midline shift. She was given 10 [address] IV. CT of the C-spine revealed no acute bony trauma. Degenerative changes noted. She was then admitted for evaluation of left-sided weakness and brain edema. Patient was admitted to telemetry. Heart rhythm was monitored. She was given gentle IV hydration. She was placed on Protonix IVP twice daily. She was treated empirically with ceftriaxone. Echocardiogram showed ejection fraction of 60% with no wall motion abnormality. MRI of the brain showed an enhancing mass in the high right parietal lobe near the vertex with peripheral enhancement and central enhancement and surrounding edema. There was mass-effect with 6 mm midline shift. Patient was sinus on the monitor without any ectopy. There were no seizure episodes. She remains ataxic with unsteady gait and left weakness. CT of the abdomen, chest and pelvis did not show any mass. CEA was elevated. Stool OB was negative x1. Patient was eventually transferred to [facility] for higher level of care. 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
== END 2019-12-10 16:31 | disposition short-term general hospital (02) | DRG 54 ==
LOC: EMR 10:07 → 2E 10:38 → EDBEDREQ 12:14 → 3E 12-08 10:02
DX: D49.6 Neoplasm of unspecified behavior of brain (principal); G93.6 Cerebral edema; K92.1 Melena; G81.94 Hemiplegia, unspecified affecting left nondominant side; R27.0 Ataxia, unspecified; R55 Syncope and collapse; E87.6 Hypokalemia; D50.9 Iron deficiency anemia, unspecified; E78.00 Pure hypercholesterolemia, unspecified; E55.9 Vitamin D deficiency, unspecified; R29.6 Repeated falls; M19.90 Unspecified osteoarthritis, unspecified site; M81.0 Age-related osteoporosis without current pathological fracture; Z90.49 Acquired absence of other specified parts of digestive tract
CPT/HCPCS: 36415; 70450; 70553; 71045; 71260; 72125; 74177; 80048; 80053; 80307; 81003; 82270; 82378; 82550; 82607; 82728; 82747; 83036; 83540; 83550; 83615; 83735; 83880; 84100; 84439; 84443; 84484; 85007; 85025; 85044; 85610; 85651; 85730; 86850; 86900; 86901; 87086; 93005; 93306; 93880; 96365; 96366; 96368; 99285; A9585; J7030; J8499; U0002